=== PATIENT | male | born 1970 | race Caucasian/White ===

== ENCOUNTER 2016-12-23 10:17 | Emergency (ER) | payer BC ==
[2016-12-23] MEDS ORDERED: HYDROmorphone 1 MG/ML SYRINGE IM STA ×2 (12:49→13:59)
[2016-12-23] MEDS ORDERED: KETOROLAC 60 MG/2 ML VIAL IM STA (12:50)
[2016-12-23] MEDS ORDERED: KETOROLAC 60 MG/2 ML VIAL ONE (13:00)
[2016-12-23] MEDS ORDERED: HYDROmorphone 1 MG/ML SYRINGE ONE ×2 (13:00→14:16)
== END 2016-12-23 14:36 | disposition home or self-care (01) ==
DX: M54.5 Low back pain (principal); G89.29 Other chronic pain; M19.90 Unspecified osteoarthritis, unspecified site; Z86.010 Personal history of colon polyps
CPT/HCPCS: 96372; 99283; 99284; J1170

== ENCOUNTER 2017-03-03 12:47 | Emergency (ER) | payer BC ==
[2017-03-03] MEDS ORDERED: oxyCOD/ACETAMIN 5 MG/325 MG TABLET PO STA (13:22)
[2017-03-03] MEDS ORDERED: NAPROXEN 250 MG TABLET PO STA (13:23)
[2017-03-03] MEDS ORDERED: oxyCOD/ACETAMIN 5 MG/325 MG TABLET PO ONE (13:28)
[2017-03-03] MEDS ORDERED: NAPROXEN 250 MG TABLET PO ONE (13:28)
== END 2017-03-03 14:45 | disposition home or self-care (01) ==
DX: M54.5 Low back pain (principal); W17.81XA Fall down embankment (hill), initial encounter; Y92.008 Other place in unspecified non-institutional (private) residence as the place of occurrence of the external cause; M51.36 Other intervertebral disc degeneration, lumbar region; Z98.1 Arthrodesis status
CPT/HCPCS: 72100; 99283; A9270

== ENCOUNTER 2017-06-28 08:58 | Outpatient (CLI) | payer BC ==
[2017-06-28 09:20] LABS: HGB - HEMOGLOBIN 13.8 g/dL (14.0-18.0); MEAN CORPUSCULAR HEMOGLOBIN 28.4 pg (27.0-31.0); MEAN CORPUSCULAR HGB CONC 34.4 g/dL (32.0-36.0); MEAN CORPUSCULAR VOLUME 82.4 fL (80.0-94.0); MEAN PLATELET VOLUME 6.7 fL (7.4-11.4); RED BLOOD COUNT 4.85 10^6/uL (4.70-6.10); RED CELL DISTRIBUTION WIDTH 13.9 % (12.0-15.0); WHITE BLOOD COUNT 7.6 x10^3/uL (4.8-10.8)
[2017-06-28 09:29] LABS: CALCIUM 9.1 mg/dL (8.5-10.3); CREATININE 0.9 mg/dL (0.6-1.2); POTASSIUM 4.2 mmol/L (3.5-5.0)
== END 2017-06-28 08:59 | disposition home or self-care (01) ==
LOC: LAB 08:58
PROVIDERS: ATTEND Orthopaedic Surgery Orthopaedic Surgery of the Spine
DX: M48.08 Spinal stenosis, sacral and sacrococcygeal region (principal)
CPT/HCPCS: 36415; 80048

== ENCOUNTER 2017-07-29 14:01 | Emergency (ER) | payer BC ==
--- NOTE | 2017-07-29 14:32 | ED Physician Documentation ---
PD HPI MHE - Stated complaint Stated Complaint: MHE - Chief complaint Chief Complaint: MHE - History obtained from History obtained from: Patient - History of Present Illness Primary symptom: Other (He has long-standing depression, although he says he has never been formally diagnosed. He was on medications a long time ago for same, not currently. Lately he has been having a lot of issues with family, marital issues, he cannot work because of his back. He texted someone today and told her that he needed help and she called 911 and he was brought here by law enforcement for help. He is not actively suicidal and has had no suicidal ideation at all. He denies alcohol or drug use.) Review of Systems Constitutional: denies: Fever, Chills Cardiac: denies: Chest pain / pressure, Palpitations Respiratory: denies: Dyspnea, Cough GI: denies: Abdominal Pain PD PAST MEDICAL HISTORY - Past Medical History Cardiovascular: None Respiratory: None Neuro: None Endocrine/Autoimmune: None GI: Pancreatitis, Colon polyps : None HEENT: None Psych: Depression Musculoskeletal: Osteoarthritis, Chronic back pain Derm: None - Past Surgical History Past Surgical History: Yes General: Colonoscopy Ortho: Arthroscopic surgery - Present Medications Home Medications: Ambulatory Orders Medication Instructions Recorded Confirmed Hydroxyzine Pamoate 07/29/17 oxyCODONE [Roxicodone] 07/29/17 - Allergies Allergies/Adverse Reactions: Allergies Allergy/AdvReac Type Severity Reaction Status Date / Time No Known Drug Allergies Allergy Verified 03/03/17 12:52 - Social History Does the pt smoke?: No Smoking Status: Never smoker Does the pt drink ETOH?: No Does the pt have substance abuse?: No - Immunizations Immunizations are current?: Yes - POLST Patient has POLST: No PD ED PE NORMAL - Vitals Vital signs reviewed: Yes - General General: Alert and oriented X 3, Other (Intermittently tearful but laughing at jokes) - HEENT HEENT: PERRL, EOMI - Neuro Neuro: Alert and oriented X 3, 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 When his [id number] arrived she will be discharged with the number for the [facility] to be called and the [facility] can evaluate him at home. Departure - Departure Disposition: Home, Self Care Clinical Impression: Depression Qualifiers: Depression Type: major depressive disorder Major depression recurrence: recurrent Active/Remission status: currently active Major depression episode severity: moderate Qualified Code(s): F33.1 - Major depressive disorder, recurrent, moderate Condition: Good Record reviewed to determine appropriate education?: Yes Instructions: ED Depression Comments: When you get home, call [phone], the line there can arrange for a mental health professional to be dispatched to her home for counseling and or to arrange psychiatric follow-up. If you develop thoughts of suicide please return for further evaluation and treatment. Your blood pressure was elevated today on check into the emergency department. This does not mean that you have hypertension, it is a common phenomenon to come to the emergency department and have elevated blood pressure. I recommend that she see your primary care physician within the week to have it rechecked when you are feeling better.
[2017-07-29 14:34] LABS: BASOPHILS # (AUTO) 0.1 10^3/uL (0.0-0.1); BASOPHILS % (AUTO) 0.7 %; EOSINOPHILS # (AUTO) 0.1 10^3/uL (0.0-0.7); EOSINOPHILS % (AUTO) 1.5 %; HCT - HEMATOCRIT 39.7 % (42.0-52.0); HGB - HEMOGLOBIN 13.7 g/dL (14.0-18.0); LYMPHOCYTES # (AUTO) 1.7 10^3/uL (1.5-3.5); LYMPHOCYTES % (AUTO) 22.3 %; MEAN CORPUSCULAR HGB CONC 34.5 g/dL (32.0-36.0); MEAN CORPUSCULAR VOLUME 81.2 fL (80.0-94.0); MEAN PLATELET VOLUME 6.8 fL (7.4-11.4); MONOCYTES # (AUTO) 0.8 10^3/uL (0.0-1.0); MONOCYTES % (AUTO) 10.4 %; NEUTROPHILS # (AUTO) 5.1 10^3/uL (1.5-6.6); NEUTROPHILS % (AUTO) 65.1 %; RED BLOOD COUNT 4.88 10^6/uL (4.70-6.10); RED CELL DISTRIBUTION WIDTH 13.3 % (12.0-15.0); UNCORRECTED WHITE BLOOD COUNT 7.8 x10^3/uL; WHITE BLOOD COUNT 7.8 x10^3/uL (4.8-10.8)
[2017-07-29 14:41] LABS: ALBUMIN/GLOBULIN RATIO 1.2 (1.0-2.2); BUN - BLOOD UREA NITROGEN 20 mg/dL (6-20); CALCIUM 9.6 mg/dL (8.5-10.3); CARBON DIOXIDE - CO2 22 mmol/L (21-32); CHLORIDE 102 mmol/L (101-111); CREATININE 1.1 mg/dL (0.6-1.2); GFR - MDRD 71 (>89); GLUCOSE 95 mg/dL (70-100); LIPASE 25 U/L (22-51); POTASSIUM 3.9 mmol/L (3.5-5.0); SODIUM 136 mmol/L (135-145); TOTAL PROTEIN 8.3 g/dL (6.7-8.2)
[2017-07-29 14:46] LABS: BILIRUBIN,URINE NEGATIVE (NEGATIVE)
[2017-07-29 14:47] LABS: UA CHARGE (STRIP ONLY) YES; UR CULTURE IF IND NOT INDICATED
[2017-07-29 15:29] VITALS: BP 139/82
== END 2017-07-29 15:15 | disposition home or self-care (01) ==
LOC: ED 14:01
DX: F33.1 Major depressive disorder, recurrent, moderate (principal); R03.0 Elevated blood-pressure reading, without diagnosis of hypertension; Z86.010 Personal history of colon polyps; M19.90 Unspecified osteoarthritis, unspecified site
CPT/HCPCS: 36415; 80053; 80306; 80320; 81001; 81003; 83690; 85025; 87086; 99283

== ENCOUNTER 2017-07-30 10:29 | Emergency (ER) | payer BC ==
[2017-07-30 10:49] VITALS: BP 119/78
== END 2017-07-30 11:55 | disposition left against medical advice (07) ==
LOC: ED 10:29
DX: R45.851 Suicidal ideations (principal); Z53.21 Procedure and treatment not carried out due to patient leaving prior to being seen by health care provider
CPT/HCPCS: 80053; 80307; 80320; 80329; 83690; 85025; 99281

== ENCOUNTER 2018-01-07 22:22 | Emergency (ER) | payer BC ==
[2018-01-07 22:31] VITALS: BP 132/73
[2018-01-07] MEDS ORDERED: LIDOCAINE PATCH 5% TOP STA (22:51)
[2018-01-07] MEDS ORDERED: DEXAMETHASONE 10 MG/ML VIAL PO STA (22:51)
[2018-01-07] MEDS ORDERED: KETOROLAC 60 MG/2 ML VIAL IM STA (22:51)
[2018-01-07] MEDS ORDERED: CYCLOBENZAPRINE 10 MG Prepack 2 PO PRN (22:52)
--- NOTE | 2018-01-07 23:08 | ED Physician Documentation ---
PD HPI BACK PAIN - Stated complaint Stated Complaint: LOWER BACK PX - Chief complaint Chief Complaint: Back Pain - History obtained from History obtained from: Patient - History of Present Illness Timing - onset: Today Timing - details: Gradual onset, Still present Location: Lower, Right Quality: Pain, Spasm, Similar to prior episodes Worsened by: Movement Contributing factors: Lifting, Twisting Similar symptoms before: Work up / diagnostics Recently seen: Not recently seen - Additional information Additional information: Patient is a 47 year old male with a history of chronic back pain with multiple surgeries in the past. Patient states that today he was moving furniture and he developed right sided muscle pain and spasm. patient denies any bladder or bowel disfunction or any trauma. Patient denies any fevers, chills, nausea or vomiting. Review of Systems Constitutional: denies: Fever, Chills Eyes: reports: Reviewed and negative Ears: reports: Reviewed and negative Nose: denies: Congestion Throat: reports: Reviewed and negative Cardiac: denies: Chest pain / pressure, Palpitations, Calf pain Respiratory: denies: Dyspnea, Cough, Wheezing GI: denies: Nausea, Vomiting : denies: Dysuria, Unable to Void, Incontinent Skin: denies: Rash, Lesions, Abrasion (s) Musculoskeletal: reports: Back pain, Extremity pain Neurologic: denies: Generalized weakness, Focal weakness, Numbness Immunocompromised: denies: Immunocompromised PD PAST MEDICAL HISTORY - Past Medical History Cardiovascular: None Respiratory: None Neuro: None Endocrine/Autoimmune: None GI: Pancreatitis, Colon polyps : None HEENT: None Psych: Depression Musculoskeletal: Osteoarthritis, Chronic back pain Derm: None - Past Surgical History Past Surgical History: Yes General: Colonoscopy Ortho: Arthroscopic surgery - Present Medications Home Medications: Ambulatory Orders Medication Instructions Recorded Confirmed hydrOXYzine pamoate [Hydroxyzine 07/29/17 Pamoate] oxyCODONE [Roxicodone] 07/29/17 Cyclobenzaprine [Flexeril] 10 mg PO TID PRN #20 tablet 01/07/18 Lidocaine Patch 5% [Lidoderm Patch] 1 each TOP DAILY #14 patch 01/07/18 - Allergies Allergies/Adverse Reactions: Allergies Allergy/AdvReac Type Severity Reaction Status Date / Time No Known Drug Allergies Allergy Verified 01/07/18 22:31 - Social History Does the pt smoke?: No Smoking Status: Never smoker Does the pt drink ETOH?: No Does the pt have substance abuse?: No - Immunizations Immunizations are current?: Yes - POLST Patient has POLST: No PD ED PE NORMAL - Vitals Vital signs reviewed: Yes - General General: Alert and oriented X 3 - HEENT HEENT: Atraumatic, PERRL, Moist mucous membranes - Neck Neck: Supple, no meningeal sign - Cardiac Cardiac: RRR, No murmur - Respiratory Respiratory: No respiratory distress - Abdomen Abdomen: Soft, Non tender, Non distended - Derm Derm: Normal color, No rash - Extremities Extremities: No deformity - Neuro Neuro: Alert and oriented X 3, 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 No: Vertebral tenderness Results - Vitals Vitals: Vital Signs - 24 hr 01/07/18 22:27 Temperature 36.6 C Heart Rate 69 Respiratory 18 Rate Blood Pressure 132/73 H O2 Saturation 98 Oxygen O2 Source Room air PD MEDICAL DECISION MAKING - ED course Complexity details: reviewed old records, reviewed results, re-evaluated patient , considered differential, d/w patient ED course: Patient was seen and examined at beside. patient's pain was all literal and there was no sign of neurological deficit. Patient was driving himself and was treated with toradol, lidoderm and decadron. Patient was given a take home pack of flexeril. Patient had no indication for imaging at this time and was stable for discharge with outpatient followup. Departure - Departure Disposition: 01 Home, Self Care Clinical Impression: Lumbar strain Condition: Good Instructions: ED Spasm Back No Trauma Follow-Up: primary,care provider [Other] - Within 3 Days Prescriptions: Cyclobenzaprine [Flexeril] 10 mg PO TID PRN #20 tablet PRN Reason: Spasms Lidocaine Patch 5% [Lidoderm Patch] 1 each TOP DAILY #14 patch Comments: Your symptoms today are likely secondary to muscle strain as opposed to a spinal cord problem. You should continue with your current pain management but you can add flexeril for muscle spasm and lidoderm patch for pain. You can also try ice or heat as tolerated. You should avoid any heavy lifting or strenuous physical activity. You cannot drive or operate heavy machinery while taking the muscle relaxer. You should follow up with your back specialist. You may return to the emergency department at any time for new, worsening or uncontrollable symptoms. Forms: Activity restrictions
== END 2018-01-07 23:30 | disposition home or self-care (01) ==
LOC: ED 22:22
DX: S39.012A Strain of muscle, fascia and tendon of lower back, initial encounter (principal); X50.0XXA Overexertion from strenuous movement or load, initial encounter; Y93.89 Activity, other specified
CPT/HCPCS: 96372; 99283; A9270

== ENCOUNTER 2018-02-23 19:18 | Emergency (ER) | payer BC ==
--- NOTE | 2018-02-23 20:10 | ED Physician Documentation ---
PD HPI BACK PAIN - Stated complaint Stated Complaint: LOWER BACK PX - Chief complaint Chief Complaint: Back Pain - History obtained from History obtained from: Patient - History of Present Illness Timing - onset: How many days ago (2) Timing - duration: Days Timing - details: Gradual onset, Waxing and waning Pain level now: 9 Location: Lower, Right, Left Quality: Pain, Spasm Improves with: Nothing Worsened by: Other (no exacerbating factors) Similar symptoms before: Diagnosis (chronic back pain) Recently seen: Emergency Dept (T+R last month for similar symptoms (did not have relief with the lidoderm nor the decadron, and has since had direct injection of steroids into back and he says these have not provided significant relief, either)) Review of Systems Constitutional: denies: Fever GI: denies: Abdominal Pain : denies: Incontinent Skin: denies: Rash Musculoskeletal: reports: Back pain Neurologic: denies: Focal weakness, Numbness PD PAST MEDICAL HISTORY - Past Medical History Past Medical History: Yes Cardiovascular: None Respiratory: None Neuro: None Endocrine/Autoimmune: None GI: Pancreatitis, Colon polyps : None HEENT: None Psych: Depression Musculoskeletal: Osteoarthritis, Chronic back pain Derm: None Other Past Medical History: Colon cancer - Past Surgical History Past Surgical History: Yes General: Colonoscopy Ortho: Arthroscopic surgery - Present Medications Home Medications: Ambulatory Orders Medication Instructions Recorded Confirmed oxyCODONE [Roxicodone] 1 - 2 tab PO Q6HR PRN 07/29/17 Cyclobenzaprine [Flexeril] 10 mg PO TID PRN #20 tablet 02/23/18 - Allergies Allergies/Adverse Reactions: Allergies Allergy/AdvReac Type Severity Reaction Status Date / Time No Known Drug Allergies Allergy Verified 02/23/18 19:23 - Social History Does the pt smoke?: No Smoking Status: Never smoker Does the pt drink ETOH?: No Does the pt have substance abuse?: No - Immunizations Immunizations are current?: Yes Immunizations: TDAP current <10years - POLST Patient has POLST: No PD ED PE NORMAL - Vitals Vital signs reviewed: Yes - General General: Alert and oriented X 3, No acute distress, Well developed/nourished - Back Back: No spinal TTP, Other (no TTP midline or bilateral paravertebral) - Derm Derm: No rash - Extremities Extremities: Normal ROM s pain, No edema - Neuro Neuro: Alert and oriented X 3, No motor deficit, No sensory deficit, Other (2+/ 4 bilateral patellar DTR) Results - Vitals Vitals: Vital Signs - 24 hr 02/23/18 19:21 Temperature 36.2 C L Heart Rate 71 Respiratory 16 Rate Blood Pressure 127/70 O2 Saturation 98 Oxygen O2 Source Room air PD MEDICAL DECISION MAKING - ED course Complexity details: reviewed old records, considered differential, d/w patient Departure - Departure Disposition: 01 Home, Self Care Clinical Impression: Acute exacerbation of chronic low back pain Condition: Good Instructions: ED Back Care Tips, ED Spasm Back No Trauma, Flexeril, ED Neck Back Pain General Prescriptions: Cyclobenzaprine [Flexeril] 10 mg PO TID PRN #20 tablet PRN Reason: Spasms Forms: Activity restrictions
[2018-02-23] MEDS ORDERED: CYCLOBENZAPRINE 10 MG Prepack 2 PO STA (20:27)
[2018-02-23] MEDS ORDERED: KETOROLAC 60 MG/2 ML VIAL IM STA (20:30)
[2018-02-23 21:03] VITALS: BP 127/65
== END 2018-02-23 21:07 | disposition home or self-care (01) ==
LOC: ED 19:18
DX: M54.5 Low back pain (principal); G89.29 Other chronic pain; M19.90 Unspecified osteoarthritis, unspecified site; Z85.038 Personal history of other malignant neoplasm of large intestine
CPT/HCPCS: 96372; 99283

== ENCOUNTER 2018-07-05 18:44 | Emergency (ER) | payer BC ==
[2018-07-05] MEDS ORDERED: oxyCODONE 5 MG TABLET PO STA (19:02)
--- NOTE | 2018-07-05 19:05 | ED Physician Documentation ---
PD HPI BACK PAIN - Stated complaint Stated Complaint: BACK PX - Chief complaint Chief Complaint: Back Pain - History obtained from History obtained from: Patient - History of Present Illness Timing - onset: Other (48-year-old gentleman with history of back pain, he in 2016 he had some lumbar fusions and cages placed. Over the last 6 months he has had lower and right-sided back pain but the atypical thing is that it radiates to the right upper quadrant. It never awakens him from sleep and does not seem to be Associated with eating. It does not seem positional but he has a hard time getting up from a laying or sitting position. He denies weakness, numbness, tingling of the extremities or saddle area. No fevers or weight loss. ) Review of Systems Constitutional: denies: Fever, Chills Respiratory: denies: Dyspnea, Cough GI: reports: Abdominal Pain. denies: Nausea, Vomiting, Constipation, Diarrhea : denies: Dysuria, Frequency, Hematuria PD PAST MEDICAL HISTORY - Past Medical History Cardiovascular: None Respiratory: None Endocrine/Autoimmune: None GI: Pancreatitis, Colon polyps : None HEENT: None Psych: Depression Musculoskeletal: Osteoarthritis, Chronic back pain Derm: None - Past Surgical History Past Surgical History: Yes General: Colonoscopy Ortho: Arthroscopic surgery - Present Medications Home Medications: Ambulatory Orders Medication Instructions Recorded Confirmed DULoxetine [Cymbalta] mg PO DAILY 07/05/18 Oxycodone HCl 10 mg PO TID PRN #15 tablet 07/05/18 - Allergies Allergies/Adverse Reactions: Allergies Allergy/AdvReac Type Severity Reaction Status Date / Time No Known Drug Allergies Allergy Verified 07/05/18 18:49 - Social History Does the pt smoke?: No Smoking Status: Never smoker Does the pt drink ETOH?: No Does the pt have substance abuse?: No - Immunizations Immunizations are current?: Yes Immunizations: TDAP current <10years - POLST Patient has POLST: No PD ED PE NORMAL - Vitals Vital signs reviewed: Yes - General General: Alert and oriented X 3, No acute distress - Cardiac Cardiac: RRR, No murmur - Respiratory Respiratory: No respiratory distress, Clear bilaterally - Abdomen Abdomen: Other (He is tender on the right side of the abdomen, is diffuse and mild. No surgical signs. Note history of appendectomy.) - Back Back: No CVA TTP, No spinal TTP - Extremities Extremities: No edema, No calf tenderness / cord, Other (He has equal Achilles reflexes, mildly diminished right patellar reflex but normal on the left. Sensation throughout the lower extremities is normal.) - Neuro Neuro: Alert and oriented X 3, Normal speech Results - Vitals Vitals: Vital Signs - 24 hr 07/05/18 18:47 Temperature 36.8 C Heart Rate 69 Respiratory 16 Rate Blood Pressure 149/73 H O2 Saturation 97 Oxygen O2 Source Room air - Rads (name of study) CT L spine and abd/pelvis Radiology: EMP read contemporaneously (NAD, DDD in back) PD MEDICAL DECISION MAKING - ED course ED course: Seems to have excerbation of LBP, but radiation to RUQ is atypical. As such CT imaging was done and normal. - Sepsis Event Vital Signs: Vital Signs - 24 hr 07/05/18 18:47 Temperature 36.8 C Heart Rate 69 Respiratory 16 Rate Blood Pressure 149/73 H O2 Saturation 97 Oxygen O2 Source Room air Departure - Departure Disposition: Home, Self Care Clinical Impression: Acute exacerbation of chronic low back pain Abdominal pain Qualifiers: Abdominal location: right upper quadrant Qualified Code(s): R10.11 - Right upper quadrant pain Condition: Good Record reviewed to determine appropriate education?: Yes Instructions: ED Abdominal Pain Unkn Cause, ED Neck Back Pain General Prescriptions: Oxycodone HCl 10 mg PO TID PRN #15 tablet PRN Reason: Pain Comments: Do not drink or drive while taking narcotic pain medication. Note that many narcotic pain relievers also contain Tylenol/acetaminophen. Please ensure that your total dose of acetaminophen from all sources does not exceed 3 g (3000 mg) per day. You may get constipated while on this medication. Take a stool softener such as Colace twice a day while you are on it. Also add an [id number] laxative such as senna or MiraLAX on any day that you do not have a bowel movement. If you received a narcotic pain medication or sedative while in the emergency department, do not drive for the next 24 hours. Your blood pressure was elevated today on check into the emergency department. This does not mean that you have hypertension, it is a common phenomenon to come to the emergency department and have elevated blood pressure. I recommend that you see your primary care physician within the week to have it rechecked when you are feeling better.
--- NOTE | 2018-07-05 20:12 | CT Report ---
Reason: back/abd pain Procedure Date: 07/05/2018 Accession Number: [id number] / [id number] Procedure: CT - Abdomen/Pelvis W/O CPT Code: FULL RESULT: EXAM: CT ABDOMEN AND PELVIS EXAM DATE: 07/05/2018 07:44 PM. CLINICAL HISTORY: Back/abd pain. COMPARISONS: ABDOMEN/PELVIS W/ 09/14/2013. TECHNIQUE: Routine helical CT imaging was performed through the abdomen and pelvis. IV contrast: No. Enteric contrast: No. Reconstructions: Coronal and sagittal. In accordance with CT protocol optimization, one or more of the following dose reduction techniques were utilized for this exam: automated exposure control, adjustment of mA and/or KV based on patient size, or use of iterative reconstructive technique. FINDINGS: Lung Bases: Unremarkable. Liver: Normal. No masses. Gallbladder/Bile Ducts: The gallbladder is contracted. No evidence of cholecystitis or bile duct obstruction. Spleen: Normal. Pancreas: Normal. Adrenal Glands: Normal. Kidneys: There is a 1.7 cm cyst at the upper pole of the left kidney. No urinary tract stones or hydronephrosis. Peritoneal Cavity/Bowel: Normal. No free fluid, free air or adenopathy. No masses or acute inflammatory process. The appendix is well-visualized. No right lower quadrant inflammatory changes however are seen. Pelvic Organs: Normal. The bladder and visualized pelvic organs are within normal limits. Vasculature: No aneurysms or other significant abnormality. Bones: L4-S1 posterior and interbody fusion. Other: None. IMPRESSION: 1. No urinary tract stones or obstruction. 2. No bowel obstruction, fluid collection or acute inflammatory changes. RADIA
--- NOTE | 2018-07-05 20:13 | CT Report ---
Reason: back/abd pain Procedure Date: 07/05/2018 Accession Number: [id number] / [id number] Procedure: CT - Lumbar Spine W/O CPT Code: FULL RESULT: EXAM: CT LUMBAR SPINE WITHOUT CONTRAST EXAM DATE: 07/05/2018 07:44 PM. CLINICAL HISTORY: Back/abd pain. COMPARISONS: LUMBAR SPINE W/O 10/13/2015. TECHNIQUE: Thin-section axial images were acquired of the lumbar spine from T12 to S1 without contrast. Post-processing: Coronal and sagittal reformats. Other: None. In accordance with CT protocol optimization, one or more of the following dose reduction techniques were utilized for this exam: automated exposure control, adjustment of mA and/or KV based on patient size, or use of iterative reconstructive technique. FINDINGS: Alignment: There is grade 1 spondylolisthesis at L5-S1. Alignment at other levels appears satisfactory. Bones: Five [id number]-jeu-[id number] lumbar vertebral bodies are present. There are bilateral posterior pedicle screws at L4, L5, and S1. There are new interbody surgical prosthesis at L4-L5 and L5-S1. 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 Disk Levels/Facets: There is disk height loss with broad-based disk bulge at L3-L4 which is unchanged. Other disk spaces appear unchanged. Musculature: No paravertebral hematoma or muscular asymmetry. Other: The visualized retroperitoneum is unremarkable. IMPRESSION: 1. New findings of posterior spinal fusion and interbody prosthesis at L4-L5-S1. 2. Stable grade 1 spondylolisthesis at L5-S1. 3. No acute fracture or hematoma. RADIA
[2018-07-05] MEDS ORDERED: HYDROmorphone 1 MG/ML CARPUJECT IM STA (20:21)
[2018-07-05 20:39] VITALS: BP 137/67
== END 2018-07-05 20:49 | disposition home or self-care (01) ==
LOC: ED 18:44
DX: M54.5 Low back pain (principal); R10.11 Right upper quadrant pain; G89.29 Other chronic pain; R03.0 Elevated blood-pressure reading, without diagnosis of hypertension; Z98.1 Arthrodesis status
CPT/HCPCS: 72131; 74176; 96372; 99283; 99284; A9270; J1170

== ENCOUNTER 2018-08-02 00:26 | Emergency (ER) | payer BC ==
[2018-08-02 01:14] LABS: BASOPHILS % (AUTO) 0.5 %; EOSINOPHILS # (AUTO) 0.2 10^3/uL (0.0-0.7); EOSINOPHILS % (AUTO) 2.4 %; LYMPHOCYTES # (AUTO) 2.9 10^3/uL (1.5-3.5); LYMPHOCYTES % (AUTO) 33.3 %; MEAN CORPUSCULAR HEMOGLOBIN 29.2 pg (27.0-31.0); MEAN CORPUSCULAR HGB CONC 34.2 g/dL (32.0-36.0); MEAN CORPUSCULAR VOLUME 85.4 fL (80.0-94.0); MONOCYTES # (AUTO) 0.8 10^3/uL (0.0-1.0); MONOCYTES % (AUTO) 9.1 %; NEUTROPHILS # (AUTO) 4.8 10^3/uL (1.5-6.6); NEUTROPHILS % (AUTO) 54.7 %; PLT - PLATELET COUNT 252 10^3/uL (130-450); RED BLOOD COUNT 4.45 10^6/uL (4.70-6.10); RED CELL DISTRIBUTION WIDTH 13.6 % (12.0-15.0); WHITE BLOOD COUNT 8.7 x10^3/uL (4.8-10.8)
[2018-08-02] MEDS ORDERED: HYDROmorphone 1 MG/ML CARPUJECT IVP STA ×2 (01:25→03:17)
[2018-08-02] MEDS ORDERED: ONDANSETRON 4 MG/2 ML VIAL IVP STA (01:25)
--- NOTE | 2018-08-02 01:25 | ED Physician Documentation ---
PD HPI ABD PAIN - Stated complaint Stated Complaint: LAT RIB CAGE PX - Chief complaint Chief Complaint: General - History obtained from History obtained from: Patient - History of Present Illness Timing - onset: How many months ago (1) Timing - duration: Months (1) Timing - details: Intermittant Pain level max: 8 Pain level now: 7 Quality: Cramping, Aching, Pain Location: RUQ Radiation: No: Chest, , Lower back, Left flank, Left shoulder, Right flank, Right shoulder, Upper back Improved by: Other (nothing) Worsened by: Other (nothing) Associated symptoms: Nausea. No: Fever, Vomiting, Hematemesis, Diarrhea, Constipation, Melena, Hematochezia, Dysuria Similar symptoms before: Has not had sx before Recently seen: Not recently seen Review of Systems Ten Systems: 10 systems reviewed and negative Constitutional: denies: Fever Ears: denies: Ear pain Nose: denies: Rhinorrhea / runny nose, Congestion Throat: denies: Sore throat Respiratory: denies: Cough, Wheezing Skin: denies: Rash Musculoskeletal: denies: Neck pain, Back pain Neurologic: denies: Focal weakness, Numbness, Headache PD PAST MEDICAL HISTORY - Past Medical History Past Medical History: Yes Cardiovascular: None Respiratory: None Endocrine/Autoimmune: None GI: Pancreatitis, Colon polyps : None HEENT: None Psych: Depression Musculoskeletal: Osteoarthritis, Chronic back pain Derm: None - Past Surgical History Past Surgical History: Yes General: Colonoscopy Ortho: Arthroscopic surgery - Present Medications Home Medications: Ambulatory Orders Medication Instructions Recorded Confirmed DULoxetine [Cymbalta] mg PO DAILY 07/05/18 Ondansetron Odt [Zofran] 4 mg TL Q6H PRN #10 tablet 08/02/18 Oxycodone HCl/Acetaminophen 1 - 2 each PO Q6H PRN #14 tablet 08/02/18 [Percocet 5-325 mg Tablet] - Allergies Allergies/Adverse Reactions: Allergies Allergy/AdvReac Type Severity Reaction Status Date / Time No Known Drug Allergies Allergy Verified 08/02/18 00:44 - Social History Does the pt smoke?: No Smoking Status: Never smoker Does the pt drink ETOH?: No Does the pt have substance abuse?: No - Immunizations Immunizations are current?: Yes Immunizations: TDAP current <10years - POLST Patient has POLST: No PD ED PE NORMAL - Vitals Vital signs reviewed: Yes - General General: Alert and oriented X 3, No acute distress - HEENT HEENT: Moist mucous membranes - Neck Neck: Supple, no meningeal sign - Cardiac Cardiac: RRR, Strong equal pulses - Respiratory Respiratory: No respiratory distress, Clear bilaterally - Abdomen Abdomen: Soft, Non distended, Other (Mild tender palpation epigastric and right upper quadrant. Negative Melchor sign. No peritoneal signs) - Back Back: No spinal TTP - Derm Derm: Warm and dry, No rash - Extremities Extremities: No edema, No calf tenderness / cord - Neuro Neuro: Alert and oriented X 3 - Psych Psych: Normal mood, Normal affect Results - Vitals Vitals: Vital Signs - 24 hr 08/02/18 08/02/18 08/02/18 00:37 01:57 02:34 Temperature 36.5 C Heart Rate 64 80 60 Respiratory 17 14 16 Rate Blood Pressure 145/78 H 135/81 H 128/77 O2 Saturation 98 96 99 08/02/18 08/02/18 03:20 03:49 Temperature 36.4 C L Heart Rate 53 L 55 L Respiratory 14 18 Rate Blood Pressure 119/81 H 125/80 O2 Saturation 98 98 Oxygen O2 Source Room air - Labs Labs: Laboratory Tests 08/02/18 08/02/18 08/02/18 01:05 01:05 02:05 WBC 8.7 RBC 4.45 L Hgb 13.0 L Hct 38.0 L MCV 85.4 MCH 29.2 MCHC 34.2 RDW 13.6 Plt Count 252 MPV 7.0 L Neut # (Auto) 4.8 Lymph # (Auto) 2.9 [place] # (Auto) 0.8 Eos # (Auto) 0.2 Baso # (Auto) 0.0 Absolute Nucleated RBC 0.01 Nucleated RBC % 0.1 Sodium 140 Potassium 3.4 L Chloride 106 Carbon Dioxide 24 Anion Gap 10.0 BUN 21 H Creatinine 1.1 Estimated GFR (MDRD) 71 L Glucose 102 H Calcium 9.1 Total Bilirubin 1.1 H AST 26 ALT 16 Alkaline Phosphatase 87 Total Protein 7.4 Albumin 4.4 Globulin 3.0 Albumin/Globulin Ratio 1.5 Lipase 34 Urine Color YELLOW Urine Clarity CLEAR Urine pH 5.5 Ur Specific [place] 1.020 Urine Protein NEGATIVE Urine Glucose (UA) NEGATIVE Urine Ketones NEGATIVE Urine Occult Blood NEGATIVE Urine Nitrite NEGATIVE Urine Bilirubin NEGATIVE Urine Urobilinogen 0.2 (NORMAL) Ur Leukocyte Esterase NEGATIVE Ur Microscopic Review NOT INDICATED Urine Culture Comments NOT INDICATED - Rads (name of study) CT abd/pelvis Radiology: Prelim report reviewed, EMP read contemporaneously, See rad report (Fatty liver and mild splenomegaly. Small low-attenuation liver lesions, some of which may be cysts. The largest is probably a cavernous hemangioma seen on prior ultrasound. 3. Mildly dilated proximal small bowel loops with air-fluid levels. These are nonspecific. There could be localized ileus. Low-grade obstruction not entirely excluded. Moderate stool in the colon. ) PD MEDICAL DECISION MAKING - ED course Complexity details: reviewed results, re-evaluated patient (Soft, nontender nondistended), considered differential, d/w patient ED course: Patient is a 48-year-old male with abdominal pain intermittently for the past month. No acute findings on laboratory testing to explain his pain. CT does not reveal any acute abnormalities other than possible focal ileus. He is not vomiting. Pain well controlled. Will trial on a small amount of pain medication see how he progresses. Ultrasound is not available tonight, therefore this was not undertaken. CT scan does not show any evidence of acute cholecystitis however. Recommend he follow-up with his doctor for further care. Symptoms does not appear consistent with gastritis or ulcer. Patient counseled regarding signs and symptoms for which I believe and urgent re-evaluation would be necessary. Patient with good understanding of and agreement to plan and is comfortable going home at this time This document was made in part using voice recognition software. While efforts are made to proofread this document, sound alike and grammatical errors may occur. - Sepsis Event Vital Signs: Vital Signs - 24 hr 08/02/18 08/02/18 08/02/18 00:37 01:57 02:34 Temperature 36.5 C Heart Rate 64 80 60 Respiratory 17 14 16 Rate Blood Pressure 145/78 H 135/81 H 128/77 O2 Saturation 98 96 99 08/02/18 08/02/18 03:20 03:49 Temperature 36.4 C L Heart Rate 53 L 55 L Respiratory 14 18 Rate Blood Pressure 119/81 H 125/80 O2 Saturation 98 98 Oxygen O2 Source Room air Departure - Departure Disposition: 01 Home, Self Care Clinical Impression: Ileus Abdominal pain Qualifiers: Abdominal location: unspecified location Qualified Code(s): R10.9 - Unspecified abdominal pain Condition: Good Instructions: ED Abdominal Pain Unkn Cause Male Follow-Up: your,doctor in 1 week [Other] Prescriptions: Ondansetron Odt [Zofran] 4 mg TL Q6H PRN #10 tablet PRN Reason: Nausea / Vomiting Oxycodone HCl/Acetaminophen [Percocet 5-325 mg Tablet] 1 - 2 each PO Q6H PRN #14 tablet PRN Reason: pain Comments: The cause of your symptoms is unclear today. You do have some mildly dilated small bowel loops that may be a localized ileus which could cause pain versus a low-grade obstruction. You should follow-up with your doctor for an ultrasound of your liver. Ultrasound was unavailable tonight. Your laboratory testing is normal. Your CT scan is otherwise normal. Return if you worsen Do not drink alcohol or drive while on narcotic pain medicine. Note that many narcotic pain relievers also contain tylenol/acetaminophen. Please ensure that your total dose of acetaminophen from all sources does not exceed 3 grams (3000mg) per day. You may constipated on this medication, take a stool softener such as "Colace" twice a day while you are on it. Also recommend a [id number] laxative such as senna or MiraLAX any day that you do not have a bowel movement. If you received narcotic pain medication in the emergency department, do not drive or operate machinery for the next 24 hours. Discharge Date/Time: 08/02/18 03:50
[2018-08-02 01:27] LABS: ALBUMIN 4.4 g/dL (3.2-5.5); ALBUMIN/GLOBULIN RATIO 1.5 (1.0-2.2); BILIRUBIN,TOTAL 1.1 mg/dL (0.2-1.0); CALCIUM 9.1 mg/dL (8.5-10.3); CREATININE 1.1 mg/dL (0.6-1.2); TOTAL PROTEIN 7.4 g/dL (6.7-8.2)
[2018-08-02] MEDS ORDERED: IOPAMIDOL-300 100 ML VIAL ONE (02:00)
[2018-08-02 02:09] LABS: BILIRUBIN,URINE NEGATIVE (NEGATIVE); GLUCOSE, URINE (UA) NEGATIVE (NEGATIVE); KETONES,URINE (UA) NEGATIVE (NEGATIVE); LEUKOCYTE ESTERASE, URINE NEGATIVE (NEGATIVE); NITRITE,URINE NEGATIVE (NEGATIVE); OCCULT BLOOD,URINE NEGATIVE (NEGATIVE); PH,URINE 5.5 PH (5.0-7.5); PROTEIN,URINE NEGATIVE (NEGATIVE); UROBILINOGEN,URINE 0.2 (NORMAL) E.U./dL (NORMAL)
[2018-08-02 02:12] LABS: CLARITY,URINE CLEAR (CLEAR)
[2018-08-02] MEDS ORDERED: IOPAMIDOL-300 100 ML VIAL IVP ONE (02:29)
--- NOTE | 2018-08-02 02:43 | CT Report ---
Reason: RUQ abd pain Procedure Date: 08/02/2018 Accession Number: [id number] / [id number] Procedure: CT - Abdomen/Pelvis W/ CPT Code: FULL RESULT: EXAM: CT ABDOMEN AND PELVIS EXAM DATE: 08/02/2018 02:14 AM. CLINICAL HISTORY: Right sided abdominal pain. COMPARISONS: ABDOMEN/PELVIS W/O 07/05/2018 7:27 PM. TECHNIQUE: Routine helical CT imaging was performed through the abdomen and pelvis. IV contrast: 100 ML ISOVUE 300. Enteric contrast: No. Reconstructions: Coronal and sagittal. In accordance with CT protocol optimization, one or more of the following dose reduction techniques were utilized for this exam: automated exposure control, adjustment of mA and/or KV based on patient size, or use of iterative reconstructive technique. FINDINGS: Lung Bases: Unremarkable. Liver: Possible fatty infiltration. At least 3 or 4 small low-attenuation foci are seen in the liver measuring up to 2.2 x 1.4 cm. The largest lesion probably represents hemangioma seen on the prior ultrasound. Gallbladder/Bile Ducts: Unremarkable. Spleen: Mildly enlarged at 13.2 cm. Pancreas: Normal. Adrenal Glands: Normal. Kidneys: Small left renal cyst. No masses or hydronephrosis. Peritoneal Cavity/Bowel: Mildly dilated proximal small bowel loops with some air fluid levels. Moderate stool in the colon. No diverticulitis. No free air or free fluid. No lymphadenopathy. Appendix is not seen. Probable appendectomy. Pelvic Organs: Normal. The bladder and visualized pelvic organs are within normal limits. Vasculature: No aneurysms or other significant abnormality. Bones: Posterior metallic fusion from L4-S1. Other: None. IMPRESSION: 1. Fatty liver and mild splenomegaly. 2. Small low-attenuation liver lesions, some of which may be cysts. The largest is probably a cavernous hemangioma seen on prior ultrasound. 3. Mildly dilated proximal small bowel loops with air-fluid levels. These are nonspecific. There could be localized ileus. Low-grade obstruction not entirely excluded. 4. Moderate stool in the colon. RADIA
[2018-08-02] MEDS ORDERED: KETOROLAC 30 MG/ML VIAL IVP STA (02:56)
[2018-08-02] MEDS ORDERED: HYOSCYAMINE SL 0.125 MG TABLET SL STA (02:56)
[2018-08-02] MEDS ORDERED: oxyCODONE 5 MG TABLET PO STA (03:12)
[2018-08-02 03:50] VITALS: BP 125/80
== END 2018-08-02 03:50 | disposition home or self-care (01) ==
LOC: ED 00:26
DX: K56.7 Ileus, unspecified (principal); R10.11 Right upper quadrant pain
CPT/HCPCS: 36415; 74177; 80053; 81003; 83690; 85025; 96374; 96375; 96376; 99284; A9270; J1170; Q9967; 81001; 87086

== ENCOUNTER 2018-11-02 17:49 | Emergency (ER) | payer BC ==
[2018-11-02] MEDS ORDERED: HYDROmorphone 1 MG/ML CARPUJECT IM STA ×2 (17:58→19:08)
--- NOTE | 2018-11-02 18:00 | ED Physician Documentation ---
PD HPI BACK PAIN - Stated complaint Stated Complaint: BK PX - Chief complaint Chief Complaint: Back Pain - History obtained from History obtained from: Patient - History of Present Illness Timing - onset: Other (48-year-old gentleman with chronic back pain status post multiple spinal spinous surgeries and fusions presents with 4 days of lumbar sharp pain that is worse with movement. It radiates into the left buttock and leg and he complains of some numbness behind the left knee. There is no saddle anesthesia, weakness. No fevers. He also notes intermittent occasional fleeting chest pains that are sharp. Generally worse with motion and activity. Lasting only seconds at a time. It is across the chest. He has not had a serious episode of this in the last 4 days. He had a chest pains care a few years ago and had a follow-up stress test.) Review of Systems Constitutional: denies: Fever, Chills Cardiac: reports: Chest pain / pressure, Pedal edema (chronic). denies: Palpitations, Calf pain Respiratory: denies: Dyspnea, Cough GI: denies: Abdominal Pain, Nausea, Vomiting Musculoskeletal: reports: Back pain. denies: Neck pain PD PAST MEDICAL HISTORY - Past Medical History Cardiovascular: None Respiratory: None Endocrine/Autoimmune: None GI: Pancreatitis, Colon polyps : None HEENT: None Psych: Depression Musculoskeletal: Osteoarthritis, Chronic back pain Derm: None - Past Surgical History Past Surgical History: Yes General: Colonoscopy Ortho: Arthroscopic surgery - Present Medications Home Medications: Ambulatory Orders Medication Instructions Recorded Confirmed DULoxetine [Cymbalta] mg PO DAILY 07/05/18 Oxycodone HCl/Acetaminophen 1 - 2 each PO Q6H PRN #14 tablet 11/02/18 [Percocet 5-325 mg Tablet] - Allergies Allergies/Adverse Reactions: Allergies Allergy/AdvReac Type Severity Reaction Status Date / Time No Known Drug Allergies Allergy Verified 11/02/18 17:57 - Social History Does the pt smoke?: No Smoking Status: Never smoker Does the pt drink ETOH?: No Does the pt have substance abuse?: No - Immunizations Immunizations are current?: Yes Immunizations: TDAP current <10years - POLST Patient has POLST: No PD ED PE NORMAL - Vitals Vital signs reviewed: Yes - General General: Alert and oriented X 3, Other (winces with motion) - Neck Neck: Supple, no meningeal sign, No bony TTP - Cardiac Cardiac: RRR, No murmur - Respiratory Respiratory: No respiratory distress, Clear bilaterally - Abdomen Abdomen: Non tender - Back Back: Other (Tender in the lumbar area and to the right paralumbar musculature.) - Extremities Extremities: Other (The patient has equal and normal Achilles and patellar reflexes bilaterally. Normal sensation in all areas of the legs. Patient denies saddle anesthesia. Normal strength in flexion-extension at the ankles, knees, and flexion of the hips.) - Neuro Neuro: Alert and oriented X 3, Normal speech Results - Vitals Vitals: Vital Signs - 24 hr 11/02/18 11/02/18 11/02/18 17:54 19:00 20:16 Temperature 36.0 C L Heart Rate 70 61 59 L Respiratory 13 16 15 Rate Blood Pressure 148/88 H 154/90 H 150/81 H O2 Saturation 93 98 97 Oxygen O2 Source Room air - EKG (time done) 1808 Rate: Rate (enter#) (61) Rhythm: NSR [place]: Normal Intervals: Normal [place] QRS: Normal Ischemia: Normal ST segments Computer interpretation: Agree with computer - Labs Labs: Laboratory Tests 11/02/18 11/02/18 11/02/18 18:24 18:24 18:24 WBC 6.6 RBC 4.45 L Hgb 13.0 L Hct 38.3 L MCV 86.1 MCH 29.2 MCHC 33.9 RDW 13.5 Plt Count 247 MPV 7.3 L Neut # (Auto) 4.2 Lymph # (Auto) 1.7 [place] # (Auto) 0.6 Eos # (Auto) 0.1 Baso # (Auto) 0.1 Absolute Nucleated RBC 0.00 Nucleated RBC % 0.0 Sodium 138 Potassium 4.2 Chloride 106 Carbon Dioxide 25 Anion Gap 7.0 BUN 26 H Creatinine 0.9 Estimated GFR (MDRD) 90 Glucose 110 H Calcium 8.6 Total Bilirubin 0.5 AST 22 ALT 22 Alkaline Phosphatase 80 Troponin I < 0.04 Total Protein 7.4 Albumin 4.2 Globulin 3.2 Albumin/Globulin Ratio 1.3 Lipase 41 - Rads (name of study) 2v chest Radiology: EMP read contemporaneously (normal) PD MEDICAL DECISION MAKING - ED course ED course: 48-year-old gentleman with 2 ongoing issues. One is fleeting and very atypical chest pain, nonischemic EKG and negative biomarkers I think are good for now given that he has not had chest pain in several days. Second would be back pain which is much more significant to him. He was given divided doses of IM narcotics with good effect. This is a recurrent issue for him and he has real pathology in his back. Departure - Departure Disposition: 01 Home, Self Care Clinical Impression: Acute exacerbation of chronic low back pain, Atypical chest pain Condition: Good Record reviewed to determine appropriate education?: Yes Instructions: ED Chest Pain Atypical Unkn Cause, ED Neck Back Pain General Prescriptions: Oxycodone HCl/Acetaminophen [Percocet 5-325 mg Tablet] 1 - 2 each PO Q6H PRN #14 tablet PRN Reason: pain Comments: Call your doctor to arrange a follow-up appointment, make the next available appointment. In the interim, return anytime if worse or if new symptoms develop. Do not drink or drive while taking narcotic pain medication. Note that many narcotic pain relievers also contain Tylenol/acetaminophen. Please ensure that your total dose of acetaminophen from all sources does not exceed 3 g (3000 mg) per day. You may get constipated while on this medication. Take a stool softener such as Colace twice a day while you are on it. Also add an [id number] laxative such as senna or MiraLAX on any day that you do not have a bowel movement. If you received a narcotic pain medication or sedative while in the emergency department, do not drive for the next 24 hours. Your blood pressure was elevated today on check into the emergency department. This does not mean that you have hypertension, it is a common phenomenon to come to the emergency department and have elevated blood pressure. I recommend that you see your primary care physician within the week to have it rechecked when you are feeling better.
[2018-11-02 18:32] LABS: BASOPHILS # (AUTO) 0.1 10^3/uL (0.0-0.1); EOSINOPHILS # (AUTO) 0.1 10^3/uL (0.0-0.7); EOSINOPHILS % (AUTO) 2.2 %; LYMPHOCYTES # (AUTO) 1.7 10^3/uL (1.5-3.5); LYMPHOCYTES % (AUTO) 25.4 %; MEAN CORPUSCULAR HEMOGLOBIN 29.2 pg (27.0-31.0); MEAN CORPUSCULAR HGB CONC 33.9 g/dL (32.0-36.0); MEAN CORPUSCULAR VOLUME 86.1 fL (80.0-94.0); MEAN PLATELET VOLUME 7.3 fL (7.4-11.4); MONOCYTES # (AUTO) 0.6 10^3/uL (0.0-1.0); MONOCYTES % (AUTO) 8.5 %; NEUTROPHILS # (AUTO) 4.2 10^3/uL (1.5-6.6); NEUTROPHILS % (AUTO) 62.9 %; PLT - PLATELET COUNT 247 10^3/uL (130-450); RED BLOOD COUNT 4.45 10^6/uL (4.70-6.10); RED CELL DISTRIBUTION WIDTH 13.5 % (12.0-15.0); WHITE BLOOD COUNT 6.6 x10^3/uL (4.8-10.8)
[2018-11-02 18:44] LABS: ALBUMIN 4.2 g/dL (3.2-5.5); ALBUMIN/GLOBULIN RATIO 1.3 (1.0-2.2); BILIRUBIN,TOTAL 0.5 mg/dL (0.2-1.0); CALCIUM 8.6 mg/dL (8.5-10.3); CREATININE 0.9 mg/dL (0.6-1.2); TOTAL PROTEIN 7.4 g/dL (6.7-8.2)
--- NOTE | 2018-11-02 19:01 | XRAY Report ---
Reason: chest pain Procedure Date: 11/02/2018 Accession Number: [id number] / [id number] Procedure: XR - Chest 2 View X-Ray CPT Code: 58531 FULL RESULT: EXAM: CHEST RADIOGRAPHY EXAM DATE: 11/02/2018 06:20 PM. CLINICAL HISTORY: Chest pain. COMPARISON: CHEST 2 VIEW PA/LAT 04/04/2015 8:04 AM. TECHNIQUE: 2 views. FINDINGS: Lungs/Pleura: No focal opacities evident. No pleural effusion. No pneumothorax. Normal volumes. Mediastinum: Heart and mediastinal contours are unremarkable. Other: None. IMPRESSION: Normal 2-view chest radiography. RADIA
[2018-11-02 20:17] VITALS: BP 150/81
[2018-11-02] MEDS ORDERED: oxyCODONE/ACET 5/325 Prepack 4 PO STA (20:17)
== END 2018-11-02 20:33 | disposition home or self-care (01) ==
LOC: ED 17:49
DX: M54.5 Low back pain (principal); G89.29 Other chronic pain; R07.89 Other chest pain; R03.0 Elevated blood-pressure reading, without diagnosis of hypertension; Z98.1 Arthrodesis status
CPT/HCPCS: 36415; 71046; 80053; 83690; 84484; 85025; 93005; 96374; 96376; 99283; J1170

== ENCOUNTER 2019-02-12 08:00 | Outpatient (CLI) | payer BC | END 2019-02-12 23:59 | disposition home or self-care (01) | LOC: LAB.N 08:00 | PROVIDERS: ATTEND Nurse Practitioner Gerontology | DX: E55.9 Vitamin D deficiency, unspecified (principal) | CPT/HCPCS: 36415; 82306 ==

== ENCOUNTER 2019-02-23 13:21 | Emergency (ER) | payer BC ==
[2019-02-23 13:40] VITALS: BP 152/84
--- NOTE | 2019-02-23 13:50 | ED Physician Documentation ---
History of Present Illness - Stated complaint Stated Complaint: BACK WOUND CHECK - Chief complaint Chief Complaint: General - History obtained from History obtained from: Patient - History of Present Illness Timing: Other (48-year-old gentleman with chronic back pain, had his fifth back surgery at [facility] about 4 weeks ago. Sutures removed about 10 days later and subsequent to that, for the last 2-1/2 weeks or so has had increased pain and drainage from the wound. No fevers.) Review of Systems Constitutional: denies: Fever, Chills Respiratory: denies: Dyspnea, Cough GI: denies: Abdominal Pain, Nausea, Vomiting PD PAST MEDICAL HISTORY - Past Medical History Cardiovascular: None Respiratory: None Endocrine/Autoimmune: None GI: Pancreatitis, Colon polyps : None HEENT: None Psych: Depression Musculoskeletal: Osteoarthritis, Chronic back pain Derm: None - Past Surgical History Past Surgical History: Yes General: Colonoscopy Ortho: Arthroscopic surgery - Present Medications Home Medications: Ambulatory Orders Medication Instructions Recorded Confirmed Oxycodone HCl/Acetaminophen 1 - 2 each PO Q6H PRN #14 tablet 11/02/18 [Percocet 5-325 mg Tablet] Amitriptyline HCl 10 mg PO 02/23/19 02/23/19 Clindamycin HCl [Clindamycin 300MG 300 mg PO Q6H #28 capsule 02/23/19 CAP] Meloxicam [Mobic] 7.5 mg PO BID PRN #20 tablet 02/23/19 - Allergies Allergies/Adverse Reactions: Allergies Allergy/AdvReac Type Severity Reaction Status Date / Time No Known Drug Allergies Allergy Verified 02/23/19 13:40 - Social History Does the pt smoke?: No Smoking Status: Never smoker Does the pt drink ETOH?: No Does the pt have substance abuse?: No - Immunizations Immunizations are current?: Yes Immunizations: TDAP current <10years - POLST Patient has POLST: No PD ED PE NORMAL - Vitals Vital signs reviewed: Yes - General General: Alert and oriented X 3, No acute distress - Back Back: Other (Over the upper lumbar spine there is a dehisced surgical wound with shallow ulcer and a purulent base. There is no surrounding cellulitis. There is no tenderness or limited range of motion because of it. It was probed during examination and does not seem to track anywhere. A culture was also sent during exam.) - Neuro Neuro: Alert and oriented X 3, Normal speech Results - Vitals Vitals: Vital Signs - 24 hr 02/23/19 13:38 Temperature 36.7 C Heart Rate 68 Respiratory 20 Rate Blood Pressure 152/84 H O2 Saturation 99 Oxygen O2 Source Room air Departure - Departure Disposition: 01 Home, Self Care Clinical Impression: Wound infection Condition: Good Record reviewed to determine appropriate education?: Yes Instructions: ED Wound Care Prescriptions: Clindamycin HCl [Clindamycin 300MG CAP] 300 mg PO Q6H #28 capsule Meloxicam [Mobic] 7.5 mg PO BID PRN #20 tablet PRN Reason: Pain Comments: Return if worse or if febrile. Follow-up with your surgeon at [facility], sooner if you are able to then scheduled. Wash briefly with soap and water once a day, then dressings as shown with wet-to-dry dressings. We are performing a wound culture, the results should be done in 48-72 hours. If antibiotic change is necessary we will call you. Return if worse in the meantime, especially if you develop increased pain, fevers, cannot keep down the medication. Otherwise follow-up with your physician in approximately 2-3 days.
== END 2019-02-23 13:59 | disposition home or self-care (01) ==
LOC: ED 13:21
DX: T81.41XA Infection following a procedure, superficial incisional surgical site, initial encounter (principal)
CPT/HCPCS: 87070; 87205; 99283

== ENCOUNTER 2019-06-02 10:51 | Emergency (ER) | payer BC ==
[2019-06-02 11:05] VITALS: BP 137/83
[2019-06-02] MEDS ORDERED: CHERRY SYRUP 10 ML UDC PO ONE (11:25)
[2019-06-02] MEDS ORDERED: DEXAMETHASONE 10 MG/ML VIAL PO STA (11:25)
[2019-06-02] MEDS ORDERED: KETOROLAC 60 MG/2 ML VIAL IM STA (11:25)
[2019-06-02] MEDS ORDERED: HYDROmorphone 1 MG/ML CARPUJECT IM STA (11:25)
--- NOTE | 2019-06-02 11:52 | ED Physician Documentation ---
PD HPI BACK PAIN - Stated complaint Stated Complaint: BACK PAIN - Chief complaint Chief Complaint: Back Pain - History obtained from History obtained from: Patient - History of Present Illness Timing - onset: How many days ago (He has had back pain chronically and has had prior back surgeries and then most recently a repeat back surgery by Dr. Escobar at this past January. He had been doing pretty well but is having increased pain over baseline the past several days to a week or so. No new injury. No fevers or signs of infection. He did follow-up with his back surgeon this past week who prescribed him gabapentin and Flexeril. They are working on getting repeat MRI and follow-up of the surgery.) Timing - duration: Days Timing - details: Gradual onset, Still present, Waxing and waning Location: Lower Quality: Pain, Spasm, Similar to prior episodes Associated symptoms: No: Fever, Weakness, Numbness, Incontinent of urine Improves with: No: Position, Meds Worsened by: Movement, Twisting Contributing factors: No: Trauma Similar symptoms before: Diagnosis (Chronic low back pain with occasional exacerbations. Recent re-surgery on the back this past January) Review of Systems Constitutional: denies: Fever, Chills, Myalgias : denies: Dysuria, Frequency, Incontinent Skin: denies: Rash, Lesions Neurologic: denies: Focal weakness, Numbness PD PAST MEDICAL HISTORY - Past Medical History Cardiovascular: None Respiratory: None Endocrine/Autoimmune: None GI: Pancreatitis, Colon polyps : None HEENT: None Psych: Depression Musculoskeletal: Osteoarthritis, Chronic back pain Derm: None - Past Surgical History Past Surgical History: Yes General: Colonoscopy Ortho: Arthroscopic surgery - Present Medications Home Medications: Ambulatory Orders Medication Instructions Recorded Confirmed Oxycodone HCl/Acetaminophen 1 - 2 each PO Q6H PRN #14 tablet 11/02/18 [Percocet 5-325 mg Tablet] Meloxicam [Mobic] 7.5 mg PO BID PRN #20 tablet 02/23/19 RX: Amitriptyline HCl 10 mg PO 02/23/19 02/23/19 RX: Clindamycin HCl [Clindamycin 300 mg PO Q6H #28 capsule 02/23/19 300MG CAP] Oxycodone HCl/Acetaminophen 1 each PO Q6H PRN #25 tablet 06/02/19 [Percocet 5-325 mg Tablet] dexAMETHasone [Decadron] 4 mg PO DAILY #7 tablet 06/02/19 - Allergies Allergies/Adverse Reactions: Allergies Allergy/AdvReac Type Severity Reaction Status Date / Time No Known Drug Allergies Allergy Verified 06/02/19 11:05 - Social History Does the pt smoke?: No Smoking Status: Never smoker Does the pt drink ETOH?: No Does the pt have substance abuse?: No - Immunizations Immunizations are current?: Yes Immunizations: TDAP current <10years - POLST Patient has POLST: No PD ED PE NORMAL - Vitals Vital signs reviewed: Yes - General General: Alert and oriented X 3, Well developed/nourished, Other (Appears in pain with guarded range of motion of the low back.) - Back Back: Other (Well-healing scar in the low back without any signs of infection.) - Derm Derm: Normal color, Warm and dry - Extremities Extremities: No tenderness to palpate, Normal ROM s pain, No edema, No calf tenderness / cord - Neuro Neuro: Alert and oriented X 3, No motor deficit, No sensory deficit Results - Vitals Vitals: Vital Signs - 24 hr 06/02/19 11:01 Temperature 36.2 C L Heart Rate 63 Respiratory 17 Rate Blood Pressure 137/83 H O2 Saturation 97 Oxygen O2 Source Room air PD MEDICAL DECISION MAKING - ED course Complexity details: re-evaluated patient (He is feeling improved with some medicines. He has episodic visits to the ER for his back pain. He needs to continue on with his primary care provider and back surgeon. This point we can provide short-term pain medication along with adding some anti-inflammatory of steroidal and nonsteroidal as well as some muscle relaxant and see how much improvement he has for the acute flareup of his chronic back pain.), considered differential (History of back pain with back surgery several months ago. No red flags at this point to suggest need for urgent imaging.), d/w patient Departure - Departure Disposition: 01 Home, Self Care Clinical Impression: Postoperative back pain Clinical Impression: (Ruled Out): Sciatica Condition: Stable Record reviewed to determine appropriate education?: Yes Instructions: ED Low Back Pain Injury Follow-Up: Lauren Hastings ARNP [Primary Care Provider] - Carlos Escobra MD [Physician No Access] - Prescriptions: dexAMETHasone [Decadron] 4 mg PO DAILY #7 tablet Oxycodone HCl/Acetaminophen [Percocet 5-325 mg Tablet] 1 each PO Q6H PRN #25 tablet PRN Reason: pain Comments: Heat and gentle stretching. Massage or physical therapy can be helpful for the back as well. Start the prescriptions from your orthopedic surgeon. Decadron steroid anti-inflammatory for a week. Add pain medicine if needed. Further pain medication will need to be from your primary care or orthopedics. Discharge Date/Time: 06/02/19 11:56
== END 2019-06-02 11:56 | disposition home or self-care (01) ==
LOC: ED 10:51
DX: G89.18 Other acute postprocedural pain (principal); M54.5 Low back pain
CPT/HCPCS: 96372; 99283; 99284; A9270; J1170

== ENCOUNTER 2020-09-09 18:57 | Outpatient (CLI) | payer OTHER ==
[2020-09-09 19:18] LABS: BASOPHILS # (AUTO) 0.1 10^3/uL (0.0-0.1); BASOPHILS % (AUTO) 0.6 %; EOSINOPHILS # (AUTO) 0.1 10^3/uL (0.0-0.7); EOSINOPHILS % (AUTO) 1.7 %; HGB - HEMOGLOBIN 13.4 g/dL (14.0-18.0); LYMPHOCYTES # (AUTO) 2.7 10^3/uL (1.5-3.5); LYMPHOCYTES % (AUTO) 32.9 %; MEAN CORPUSCULAR HEMOGLOBIN 29.6 pg (27.0-31.0); MEAN CORPUSCULAR HGB CONC 34.3 g/dL (32.0-36.0); MEAN CORPUSCULAR VOLUME 86.5 fL (80.0-94.0); MEAN PLATELET VOLUME 9.3 fL (7.4-11.4); MONOCYTES # (AUTO) 0.7 10^3/uL (0.0-1.0); MONOCYTES % (AUTO) 8.8 %; NEUTROPHILS # (AUTO) 4.5 10^3/uL (1.5-6.6); NEUTROPHILS % (AUTO) 55.5 %; PLT - PLATELET COUNT 271 10^3/uL (130-450); RED BLOOD COUNT 4.52 10^6/uL (4.70-6.10); RED CELL DISTRIBUTION WIDTH 12.7 % (12.0-15.0); WHITE BLOOD COUNT 8.1 x10^3/uL (4.8-10.8)
[2020-09-09 19:49] LABS: CALCIUM 8.6 mg/dL (8.5-10.3); CREATININE 0.9 mg/dL (0.6-1.2)
== END 2020-09-09 18:58 | disposition home or self-care (01) ==
LOC: LAB 18:57
PROVIDERS: ATTEND Internal Medicine
DX: L03.116 Cellulitis of left lower limb (principal); R22.42 Localized swelling, mass and lump, left lower limb
CPT/HCPCS: 36415; 80048; 85025; 85379

== ENCOUNTER 2021-03-07 08:47 | Day surgery (SDC) | payer OTHER ==
[2021-03-07] MEDS ORDERED: MIDAZOLAM 2 MG/2 ML VIAL ONE ×3 (10:41→11:13)
[2021-03-07] MEDS ORDERED: fentaNYL 250 MCG/5 ML VIAL ONE (10:41)
[2021-03-07] MEDS ORDERED: ACETAMINOPHEN 325 MG TABLET PO ONE (11:39)
[2021-03-07] MEDS ORDERED: ACETAMINOPHEN 325 MG TABLET PO SCH (12:00)
[2021-03-07 12:15] VITALS: BP 125/81
== END 2021-03-07 08:48 | disposition home or self-care (01) ==
LOC: SDS 08:47
PROVIDERS: ATTEND Surgery
PROC: 0DBN8ZZ Excision of Sigmoid Colon, Via Natural or Artificial Opening Endoscopic (ICD-10-PCS; 2021-03-07)
PROC: 0DBK8ZZ Excision of Ascending Colon, Via Natural or Artificial Opening Endoscopic (ICD-10-PCS; principal; 2021-03-07 10:15)
DX: Z12.11 Encounter for screening for malignant neoplasm of colon (principal); D12.4 Benign neoplasm of descending colon; D17.79 Benign lipomatous neoplasm of other sites; K64.8 Other hemorrhoids; G47.39 Other sleep apnea; Z80.0 Family history of malignant neoplasm of digestive organs
CPT/HCPCS: 45385; A9270; J3010

== ENCOUNTER 2021-07-04 08:00 | Outpatient (CLI) | payer OTHER ==
[2021-07-04 11:47] LABS: BASOPHILS # (AUTO) 0.1 10^3/uL (0.0-0.1); BASOPHILS % (AUTO) 0.8 %; EOSINOPHILS # (AUTO) 0.1 10^3/uL (0.0-0.7); EOSINOPHILS % (AUTO) 1.9 %; HCT - HEMATOCRIT 41.2 % (42.0-52.0); HGB - HEMOGLOBIN 13.6 g/dL (14.0-18.0); LYMPHOCYTES % (AUTO) 33.3 %; MEAN CORPUSCULAR HEMOGLOBIN 28.6 pg (27.0-31.0); MEAN CORPUSCULAR VOLUME 86.7 fL (80.0-94.0); MONOCYTES # (AUTO) 0.5 10^3/uL (0.0-1.0); MONOCYTES % (AUTO) 8.6 %; NEUTROPHILS # (AUTO) 3.3 10^3/uL (1.5-6.6); NEUTROPHILS % (AUTO) 55.1 %; PLT - PLATELET COUNT 281 10^3/uL (130-450); RED BLOOD COUNT 4.75 10^6/uL (4.70-6.10); RED CELL DISTRIBUTION WIDTH 12.8 % (12.0-15.0); WHITE BLOOD COUNT 5.9 x10^3/uL (4.8-10.8)
[2021-07-04 11:48] LABS: BILIRUBIN,URINE NEGATIVE (NEGATIVE); GLUCOSE, URINE (UA) NEGATIVE (NEGATIVE); KETONES,URINE (UA) NEGATIVE (NEGATIVE); LEUKOCYTE ESTERASE, URINE NEGATIVE (NEGATIVE); NITRITE,URINE NEGATIVE (NEGATIVE); OCCULT BLOOD,URINE NEGATIVE (NEGATIVE); PH,URINE 5.5 PH (5.0-7.5); PROTEIN,URINE NEGATIVE (NEGATIVE); UROBILINOGEN,URINE 0.2 (NORMAL) E.U./dL (NORMAL)
[2021-07-04 11:52] LABS: CLARITY,URINE CLEAR (CLEAR)
[2021-07-04 11:58] LABS: BACTERIA,URINE Rare /HPF (None Seen); RBC,URINE 0-5 /HPF (0-5); SQUAMOUS EPITHELIAL CELL,UR RARE Squamous (<= Few); WBC,URINE 0-3 /HPF (0-3)
[2021-07-04 12:08] LABS: ALBUMIN 4.5 g/dL (3.2-5.5); ALBUMIN/GLOBULIN RATIO 1.4 (1.0-2.2); ALKALINE PHOSPHATASE 75 IU/L (42-121); ALT ALANINE AMINOTRANSFERASE 20 IU/L (10-60); AST ASPARTATE AMINOTRANSFERASE 20 IU/L (10-42); BILIRUBIN,TOTAL 1.1 mg/dL (0.2-1.0); BUN - BLOOD UREA NITROGEN 31 mg/dL (6-20); CARBON DIOXIDE - CO2 25 mmol/L (21-32); CHLORIDE 106 mmol/L (101-111); CHOL/HDL RATIO 4.5 (<5.0); CHOLESTEROL 195 mg/dL; GFR - MDRD 78 (>89); GLUCOSE 98 mg/dL (70-100); HDL CHOLESTEROL 43 mg/dL; LDL CHOLESTEROL,CALCULATED 135 mg/dL; LDL/HDL RATIO 3.1 (<3.6); SODIUM 139 mmol/L (135-145); TOTAL PROTEIN 7.7 g/dL (6.7-8.2); TRIGLYCERIDES 86 mg/dL; VLDL CHOLESTEROL 17 mg/dL
[2021-07-04 12:16] LABS: THYROID STIMULATING HORMONE 2.88 uIU/mL (0.34-5.60)
== END 2021-07-04 23:59 | disposition home or self-care (01) ==
LOC: LAB.N 08:00
PROVIDERS: ATTEND Nurse Practitioner
DX: R53.83 Other fatigue (principal); Z12.5 Encounter for screening for malignant neoplasm of prostate; F41.8 Other specified anxiety disorders
CPT/HCPCS: 36415; 80053; 80061; 81001; 83721; 84153; 84443; 85025; 87086

== ENCOUNTER 2021-07-04 08:42 | Outpatient (CLI) | payer OTHER ==
--- NOTE | 2021-07-04 16:05 | XRAY Report ---
PROCEDURE: Knee 4 View BILAT INDICATIONS: CHRONIC BILATERAL KNEE PX TECHNIQUE: 3 views of the right and left knee(s) were acquired. COMPARISON: None. FINDINGS: Bones: No fractures or dislocations. No suspicious bony lesions. Mild osteoarthritic degenerative c hanges noted in the medial and patellofemoral compartments of the right knee. Mild osteoarthritic deg enerative changes noted in all 3 compartments of the left knee. Soft tissues: No joint effusion. No suspicious soft tissue calcifications. IMPRESSION: 1. Mild medial and patellofemoral compartment right knee osteoarthritis. 2. Mild tricompartmental left knee osteoarthritis. Reviewed by: Yoli Hollis MD, PhD on 07/04/2021 4:04 PM PDT Approved by: Yoli Hollis MD, PhD on 07/04/2021 4:04 PM PDT Station ID: [id number]
== END 2021-07-04 08:43 | disposition home or self-care (01) ==
LOC: DI.N 08:42
PROVIDERS: ATTEND Nurse Practitioner
DX: M17.0 Bilateral primary osteoarthritis of knee (principal)

== ENCOUNTER 2021-08-28 11:42 | Outpatient (CLI) | payer OTHER ==
--- NOTE | 2021-08-28 12:26 | XRAY Report ---
PROCEDURE: Ribs Bilat w/Chest 4 View INDICATIONS: RIB PAIN, RIGHT SIDE TECHNIQUE: 2 views of the bilateral ribs were acquired, along with a single view chest. COMPARISON: November 02, 2018 FINDINGS: SUPPORT DEVICES: None. LUNGS/PLEURA: No focal consolidation, pleural effusion or space-occupying pneumothorax. MEDIASTINUM: The cardiomediastinal silhouette is within normal limits. BONES/SOFT TISSUES: No acute abnormality. Specifically, no acute, displaced rib fracture. IMPRESSION: 1.No acute cardiopulmonary abnormality. 2.No acute osseous abnormality of the ribs. Reviewed by: Stepan Bailey MD on 08/28/2021 12:24 PM PDT Approved by: Stepan Bailey MD on 08/28/2021 12:24 PM PDT Station ID: [id number]
== END 2021-08-28 11:43 | disposition home or self-care (01) ==
LOC: DI 11:42
PROVIDERS: ATTEND Family Medicine
DX: R07.81 Pleurodynia (principal)

== ENCOUNTER 2021-11-30 16:57 | Emergency (ER) | payer OTHER ==
[2021-11-30 17:01] VITALS: BP 161/79
[2021-11-30] MEDS: PROPARACAINE 0.5% OPHTH DROPS 15 ML EACHEYE STA (17:13)
--- NOTE | 2021-11-30 17:15 | ED Physician Documentation ---
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 Vision is mildly blurry. No other injuries. He irrigated them at work. He does not wear contacts. Review of Systems Constitutional: reports: Reviewed and negative Eyes: reports: Reviewed and negative PD PAST MEDICAL HISTORY - Past Medical History Cardiovascular: None Respiratory: None Endocrine/Autoimmune: None GI: None : None HEENT: None Psych: None Musculoskeletal: None Derm: None - Past Surgical History Past Surgical History: Yes General: Colonoscopy Ortho: Arthroscopic surgery - Present Medications Home Medications: Ambulatory Orders Medication Instructions Recorded Confirmed Oxycodone HCl/Acetaminophen 1 - 2 each PO Q6H PRN #14 tablet 11/02/18 [Percocet 5-325 mg Tablet] Amitriptyline HCl 10 mg PO 02/23/19 02/23/19 Clindamycin HCl [Clindamycin 300MG 300 mg PO Q6H #28 capsule 02/23/19 CAP] Meloxicam [Mobic] 7.5 mg PO BID PRN #20 tablet 02/23/19 Oxycodone HCl/Acetaminophen 1 each PO Q6H PRN #25 tablet 06/02/19 [Percocet 5-325 mg Tablet] dexAMETHasone [Decadron] 4 mg PO DAILY #7 tablet 06/02/19 - Allergies Allergies/Adverse Reactions: Allergies Allergy/AdvReac Type Severity Reaction Status Date / Time No Known Drug Allergies Allergy Verified 11/30/21 17:01 - Social History Does the pt smoke?: No Smoking Status: Never smoker Does the pt drink ETOH?: No Does the pt have substance abuse?: No - Immunizations Immunizations are current?: Yes Immunizations: TDAP current <10years - POLST Patient has POLST: No PD ED PE NORMAL - Vitals Vital signs reviewed: Yes - General General: Alert and oriented X 3, No acute distress - HEENT HEENT: PERRL, EOMI, Other (Mildly and injected bilateral conjunctivitis, no fluorescein uptake) - Neuro Neuro: Alert and oriented X 3, Normal speech Eye Opening: Spontaneous Motor: Obeys Commands Verbal: Oriented GCS Score: 15 Results - Vitals Vitals: Vital Signs - 24 hr 11/30/21 16:59 Temperature 36.1 C L Heart Rate 68 Respiratory 14 Rate Blood Pressure 161/79 H O2 Saturation 95 Oxygen O2 Source Room air PD MEDICAL DECISION MAKING - ED course ED course: Eyes were thoroughly irrigated again after proparacaine, symptoms were gone after proparacaine. He was given about 1.5 mL of proparacaine that was diluted in a 1:9 ratio to use no more than 24 hours. Departure - Departure Disposition: 01 Home, Self Care Clinical Impression: Chemical conjunctivitis of both eyes Condition: Good Record reviewed to determine appropriate education?: Yes Instructions: ED Chemical Conjunctivitis Comments: If not better by Saturday follow-up with the evaporator repairer, but she should be completely better by then, return if worse. You can use 1 drop in each eye of the 129 diluted proparacaine solution I prepared for you, not more than 24 hours.
== END 2021-11-30 17:28 | disposition home or self-care (01) ==
LOC: ED 16:57
DX: T59.91XA Toxic effect of unspecified gases, fumes and vapors, accidental (unintentional), initial encounter (principal); H10.213 Acute toxic conjunctivitis, bilateral; Y93.89 Activity, other specified; Y92.69 Other specified industrial and construction area as the place of occurrence of the external cause; Y99.0 Civilian activity done for income or pay
CPT/HCPCS: 1040M; 99282; J3490

== ENCOUNTER 2022-01-08 10:49 | Outpatient (CLI) | payer OTHER | END 2022-01-08 10:50 | disposition critical access hospital (66) | LOC: EMS 10:49 | DX: R07.9 Chest pain, unspecified (principal) | CPT/HCPCS: A0425; A0427 ==

== ENCOUNTER 2022-01-08 11:09 | Emergency (ER) | payer OTHER ==
[2022-01-08] MEDS ORDERED: SODIUM CHLORIDE 0.9% 1,000 ML IV STA (11:14)
[2022-01-08 11:31] LABS: BASOPHILS % (AUTO) 0.5 %; EOSINOPHILS # (AUTO) 0.1 10^3/uL (0.0-0.7); EOSINOPHILS % (AUTO) 1.3 %; HCT - HEMATOCRIT 38.7 % (42.0-52.0); HGB - HEMOGLOBIN 13.2 g/dL (14.0-18.0); LYMPHOCYTES # (AUTO) 2.1 10^3/uL (1.5-3.5); LYMPHOCYTES % (AUTO) 26.1 %; MEAN CORPUSCULAR HEMOGLOBIN 29.3 pg (27.0-31.0); MEAN CORPUSCULAR HGB CONC 34.1 g/dL (32.0-36.0); MEAN CORPUSCULAR VOLUME 85.8 fL (80.0-94.0); MEAN PLATELET VOLUME 9.3 fL (7.4-11.4); MONOCYTES # (AUTO) 0.8 10^3/uL (0.0-1.0); MONOCYTES % (AUTO) 9.3 %; NEUTROPHILS # (AUTO) 5.1 10^3/uL (1.5-6.6); NEUTROPHILS % (AUTO) 62.4 %; PLT - PLATELET COUNT 252 10^3/uL (130-450); RED BLOOD COUNT 4.51 10^6/uL (4.70-6.10); RED CELL DISTRIBUTION WIDTH 12.6 % (12.0-15.0); WHITE BLOOD COUNT 8.2 x10^3/uL (4.8-10.8)
--- NOTE | 2022-01-08 11:38 | XRAY Report ---
PROCEDURE: Chest 1 View X-Ray INDICATIONS: Chest Pain TECHNIQUE: One view of the chest was acquired. COMPARISON: 08/28/2021 FINDINGS: Surgical changes and devices: None. Lungs and pleura: No pleural effusions or pneumothorax. Lungs are clear. Mediastinum: Mediastinal contours appear normal. Heart size is normal. Bones and chest wall: No suspicious bony lesions. Overlying soft tissues appear unremarkable. IMPRESSION: Chest without acute cardiopulmonary abnormalities. No focal airspace disease. Reviewed by: Reji Swift MD on 01/08/2022 11:36 AM PST Approved by: Reji Swift MD on 01/08/2022 11:36 AM [facility] Station ID: [id number]
[2022-01-08 11:42] LABS: D-DIMER < 200.0 ng/mL (200.0-255.0)
[2022-01-08 11:48] LABS: ALBUMIN 4.6 g/dL (3.2-5.5); ALBUMIN/GLOBULIN RATIO 1.7 (1.0-2.2); BILIRUBIN,TOTAL 1.1 mg/dL (0.2-1.0); POTASSIUM 3.8 mmol/L (3.5-5.0); TOTAL PROTEIN 7.3 g/dL (6.7-8.2)
[2022-01-08 11:57] LABS: INR 1.1 (0.8-1.2); PT - PROTHROMBIN TIME 12.1 secs (9.9-12.6)
--- NOTE | 2022-01-08 12:09 | ED Physician Documentation ---
PD HPI CHEST PAIN - Stated complaint Stated Complaint: CP - Chief complaint Chief Complaint: Cardiac - History obtained from History obtained from: Patient, EMS - Additional information Additional information: The patient comes to the emergency department chief complaint of left-sided chest pain has been going on on and off for the last 3 weeks. He states that the sharp pain above his left breast and hurts worse with a deep breath. He also has noticed worsening with certain movements. The patient states that he has no known cardiac history. He was told by his doctor sometime ago that his blood pressure is high and that he should have further evaluation for this. The patient went in to the clinic for this today and was sent here because of a subtle change on his EKG in the office, compared with 1 from 12 years ago, in the setting of high blood pressure and chest pain. The patient denies any radiation the pain. No palpitations, swelling, nausea, or shortness of breath. He has pain with deep breath which sometimes gives him a sense of shortness of breath. No other complaints at this time. No fevers or chills. No cough. He thinks his father may have had an ME at some point, but his father about 7 years ago after surgery at the age of 71, so he is not sure. Review of Systems Ten Systems: 10 systems reviewed and negative Constitutional: reports: Reviewed and negative Eyes: reports: Reviewed and negative Ears: reports: Reviewed and negative Nose: reports: Reviewed and negative Throat: reports: Reviewed and negative Cardiac: reports: Chest pain / pressure Respiratory: reports: Reviewed and negative. denies: Dyspnea GI: reports: Reviewed and negative : reports: Reviewed and negative Skin: reports: Reviewed and negative Musculoskeletal: reports: Reviewed and negative Neurologic: reports: Reviewed and negative Psychiatric: reports: Reviewed and negative Endocrine: reports: Reviewed and negative Immunocompromised: reports: Reviewed and negative PD PAST MEDICAL HISTORY - Past Medical History Past Medical History: Yes Cardiovascular: None Respiratory: None Neuro: None Endocrine/Autoimmune: None GI: None : None HEENT: None Psych: Depression Musculoskeletal: Chronic back pain Derm: None - Past Surgical History Past Surgical History: Yes General: Colonoscopy Ortho: Arthroscopic surgery, Spine surgery - Present Medications Home Medications: Ambulatory Orders Medication Instructions Recorded Confirmed buPROPion [Wellbutrin Xl] 150 mg ORAL DAILY 01/08/22 01/08/22 - Allergies Allergies/Adverse Reactions: Allergies Allergy/AdvReac Type Severity Reaction Status Date / Time No Known Drug Allergies Allergy Verified 01/08/22 11:20 - Social History Does the pt smoke?: No Smoking Status: Never smoker Does the pt drink ETOH?: No Does the pt have substance abuse?: No - Immunizations Immunizations are current?: Yes Immunizations: TDAP current <10years - POLST Patient has POLST: No PD ED PE NORMAL - Vitals Vital signs reviewed: Yes - General General: Alert and oriented X 3, No acute distress, Well developed/nourished - HEENT HEENT: Atraumatic, PERRL, EOMI, Moist mucous membranes - Neck Neck: Supple, no meningeal sign - Cardiac Cardiac: RRR, No murmur, Strong equal pulses - Respiratory Respiratory: No respiratory distress, Clear bilaterally - Abdomen Abdomen: Soft, Non tender, Non distended - Derm Derm: Normal color, Warm and dry, No rash - Extremities Extremities: No deformity, No edema, No calf tenderness / cord - Neuro Neuro: Alert and oriented X 3, 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 Results - Vitals Vitals: Vital Signs - 24 hr 01/08/22 01/08/22 11:21 11:32 Temperature 36.1 C L Heart Rate 56 L 54 L Respiratory 14 10 L Rate Blood Pressure 147/93 H 130/92 H O2 Saturation 98 97 Oxygen O2 Source Room air - EKG (time done) 1109 Rate: Rate (enter#) (53) Rhythm: NSR [place]: Normal Intervals: Normal IA, Other (Right ventricular conduction delay versus right ventricular hypertrophy with RSR prime in V1 V2) QRS: Normal Ischemia: Normal ST segments Compare to prior EKG: Other (Improved since EKG 12 years ago; No concerning findings) Computer interpretation: Agree with computer - Labs Labs: Laboratory Tests 01/08/22 01/08/22 01/08/22 11:27 11:27 11:27 WBC 8.2 RBC 4.51 L Hgb 13.2 L Hct 38.7 L MCV 85.8 MCH 29.3 MCHC 34.1 RDW 12.6 Plt Count 252 MPV 9.3 Neut # (Auto) 5.1 Lymph # (Auto) 2.1 [place] # (Auto) 0.8 Eos # (Auto) 0.1 Baso # (Auto) 0.0 Absolute Nucleated RBC 0.00 Nucleated RBC % 0.0 PT 12.1 INR 1.1 D-Dimer < 200.0 L Sodium 135 Potassium 3.8 Chloride 101 Carbon Dioxide 24 Anion Gap 10.0 BUN 28 H Creatinine 1.0 Estimated GFR (MDRD) 78 L Glucose 103 H Calcium 9.0 Total Bilirubin 1.1 H AST 19 ALT 17 Alkaline Phosphatase 77 Troponin I High Sens Total Protein 7.3 Albumin 4.6 Globulin 2.7 Albumin/Globulin Ratio 1.7 Lipase 44 01/08/22 11:27 WBC RBC Hgb Hct MCV MCH MCHC RDW Plt Count MPV Neut # (Auto) Lymph # (Auto) [place] # (Auto) Eos # (Auto) Baso # (Auto) Absolute Nucleated RBC Nucleated RBC % PT INR D-Dimer Sodium Potassium Chloride Carbon Dioxide Anion Gap BUN Creatinine Estimated GFR (MDRD) Glucose Calcium Total Bilirubin AST ALT Alkaline Phosphatase Troponin I High Sens 7.0 Total Protein Albumin Globulin Albumin/Globulin Ratio Lipase - Rads (name of study) Chest x-ray Radiology: Final report received, EMP read indepedently, See rad report (Negative) PD MEDICAL DECISION MAKING - ED course Complexity details: reviewed old records, reviewed results, re-evaluated patient, considered differential, d/w patient ED course: The patient was well-appearing in the emergency department, and had pain that sounded more musculoskeletal in nature. He was worked up with labs, which were unremarkable including negative troponin, and EKG which was mostly normal and showed no evidence of ischemia. Chest x-ray was unremarkable. The patient had been given aspirin and nitroglycerin in route with out improvement in his pain, and I discussed with him that this is unlikely to be cardiac chest pain, given the symptoms and physical exam findings. I discussed with him that if he would like to close the loop on the possibility of any cardiac contributing factors, he could talk to his doctor about having a stress test done. The patient states he had one about 6 years ago, but is not sure why. However, it was negative at that time. The patient's blood pressure is not high here and I discussed with him that he should talk further with his primary care physician about whether he should be on any medications for blood pressure. We have discussed the usual indications for return. Departure - Departure Disposition: 01 Home, Self Care Clinical Impression: Chest wall pain Condition: Stable Instructions: ED Chest Pain Costochondritis, ED Strain Chest Wall Comments: Your tests all look good here. It is important that you follow-up with your primary care physician to discuss whether you should be on blood pressure medicine chronically. We will not start this from the ER, as your blood pressure was normal here. Regarding your chest pain, you should also talk to your doctor about whether he should have another stress test done. There is no evidence of a serious cause of your chest pain today and based on this, as well as the description of your pain and the physical exam findings, it seems most likely that this is coming from your chest wall, not your vital organs. You may use ice, heat, stretching, ibuprofen, and Tylenol to help with this. This should be expected to resolve on its own, given time. If you develop severe chest pain or shortness of breath, or feel otherwise unwell with your chest pain, please return to the emergency department immediately.
[2022-01-08] MEDS ORDERED: KETOROLAC 30 MG/ML VIAL IVP STA (12:25)
[2022-01-08 13:03] VITALS: BP 124/88
== END 2022-01-08 13:02 | disposition home or self-care (01) ==
LOC: EDUNIT# → ED 11:09
DX: R07.89 Other chest pain (principal)
CPT/HCPCS: 36415; 80053; 83690; 84484; 85025; 85379; 85610; 93005; 96374; 99284

== ENCOUNTER 2022-01-23 09:17 | Outpatient (CLI) | payer OTHER ==
--- NOTE | 2022-01-23 11:02 | CT Report ---
PROCEDURE: CHEST WO INDICATIONS: RIGHT RIB PAIN TECHNIQUE: Noncontrast 1mm axial images were acquired from the pulmonary apices to the posterior costophrenic an gles. Axial 5 mm soft tissue kernel reconstructions were performed as well as 8 mm axial MIP and cor onal and sagittal 5 mm reformations. For radiation dose reduction, the following was used: automate d exposure control, adjustment of mA and/or kV according to patient size. COMPARISON: Correlation is made with prior chest radiograph, 01/08/2022. Correlation is also made with report only of the abdomen and pelvis CT 07/05/2018. FINDINGS: Image quality: Excellent. Lungs and pleura: No acute air space opacities. No pleural effusions or pneumothorax. Central and peripheral airways are patent and normal in caliber. Mediastinum: Heart size is normal. No pericardial effusion. No mediastinal adenopathy by size crit eria. Thoracic aorta and central pulmonary arteries are normal in size. Esophagus is normal in solomon sofia. No hiatal hernia. Bones and chest wall: In this patient with this given history, scrutiny is given to the right ribs. No right rib abnormality is identified. No suspicious bony lesions. No vertebral body compression fractures. Age-appropriate degenerative c hanges are seen. There is accentuated thoracic kyphosis. No axillary or supraclavicular adenopathy by size criteria. The thyroid is normal in size and there are no incidental findings. Abdomen: Incidental note is made of a simple appearing moderate in density cyst along the posterior aspect of the left kidney, as on series 3 image 62 measuring 2.9 cm. Visualized upper abdominal solid organs and bowel loops appear normal in the absence of contrast. IMPRESSION: No right rib abnormality can be seen. Incidental note is made of: Simple appearing left renal cyst Reviewed by: Zack Mcnamara MD on 01/23/2022 10:01 AM [facility] Approved by: Zack Mcnamara MD on 01/23/2022 10:01 AM [facility] Station ID: [id number]
== END 2022-01-23 09:18 | disposition home or self-care (01) ==
LOC: DI 09:17
PROVIDERS: ATTEND Physician Assistant
DX: R07.81 Pleurodynia (principal)

== ENCOUNTER 2022-02-13 07:31 | Outpatient (CLI) | payer OTHER ==
--- NOTE | 2022-02-13 08:35 | CARDIAC PROCEDURE NOTE ---
Stress Test Report Service Date: 02/13/22 Service Time: 08:00 Ordering Provider: Alma Delia Prado PA Indication for Test: Assess chest discomfort. Significant Medical History: -Arik is referred for an exercise tolerance test to evaluate left-sided chest pain that has been present for intermittently for the past 4-5 weeks. He describes it as a sharp pain above his left breast that is worse with taking a deep breath, certain movements and evident upon massaging his chest wall. He was seen for a clinic visit at which time his blood pressure was found to be elevated (as had been documented previously) and there was concern for a subtle change in his EKG. He was started on losartan and referred to the [facility] Emergency Department, where he was formally evaluated with a negative troponin and nondiagnostic EKG. -Today he tells me that he continues having the discomfort intermittently. There is no discernable pattern of occurrence though it is not more likely to occur with activity and his stamina remains intact. He describes the discomfort as rather transient in occurrence, not associated with diaphoresis, increased work of breathing or palpitations. He has been taking the losartan daily but has not yet been able to obtain a blood pressure cuff to do monitoring. His chart also notes a history of heavy snoring and when queried about this today he confirms this history and thinks that perhaps he has apneic episodes, which he awakens from periodically. He reports that he neglected to take his losartan this morning prior to coming in for the ETT. Cardiac Risk Factors: Positive for recently diagnosed hypertension and family history of CAD in his father; no known hyperlipidemia, diabetes or tobacco smoking. Type of Stress Test: Exercise Treadmill Test (ETT) Procedure: -Exercise Treadmill Test- After signing informed consent, the patient performed treadmill exercise using a Sonny protocol. The patient exercised for 9 minutes 49 seconds and achieved a peak heart rate of 146 (86 percent predicted maximum heart rate for age), and an estimated workload of 11.5 METS. The test was terminated due to fatigue/shortness of breath and chest discomfort. Resting heart rate: 67 Peak heart rate: 146 Normal response to exercise. Resting BP: 144/88 Peak BP: 189/78 Borderline resting BP elevation with physiologic response to exercise. Rhythm during exercise: Sinus rhythm throughout. Symptoms: Patient had onset of his usual chest discomfort in stage 3 and becoming significant enough to prompt discontinuation of exercise in early stage 4; chest wall was tender to palpation and discomfort was fully resolved by 4 minutes of recovery. EKG at rest showed normal sinus rhythm with incomplete right bundle branch block pattern. EKG at peak stress showed J-point depression with upsloping ST segments, NOT meeting diagnostic criteria for ischemia. In Recovery heart rate rapidly/normally decreased to baseline level; BP decreased then increased again, remaining moderately elevated at 5:00 (169/87). No imaging was ordered with this stress test. IRangel MD, was present throughout this treadmill stress study and supervised it in its entirety. Summary: 1) Exercise tolerance average for age as evidenced by ROCKY of 2.7%. 2) Normal ST segments on resting EKG, in setting of incomplete right bundle branch block. 3) Adequate level of exercise was achieved on this treadmill stress test. 4) Borderline resting BP, with physiologic response to exercise. 5) No ischemic changes by EKG criteria were seen at peak stress. 6) No imaging was ordered with this test CONCLUSIONS: 1) Patient experienced his usual chest discomfort, with features implicating a musculoskeletal origin and no evidence of inducible ischemia on EKG. This is a reassuring low risk result. 2) He is encouraged to obtain the recommended BP cuff and instructed in obtaining a BP data set for review with his provider in a few weeks. 3) We discussed his sleep concerns and the fact that if he does have untreated sleep apnea this could contribute to his hypertension, as well as the incomplete right bundle branch block seen on EKG. Therefore he will review his symptomatology further with his spouse and discuss at an upcoming provider visit, with consideration of undergoing formal sleep apnea evaluation.
== END 2022-02-13 07:32 | disposition home or self-care (01) ==
LOC: DI 07:31
PROVIDERS: ATTEND Physician Assistant
DX: I45.10 Unspecified right bundle-branch block (principal); I10 Essential (primary) hypertension; Z82.49 Family history of ischemic heart disease and other diseases of the circulatory system
CPT/HCPCS: 93016; 93017; 93018

== ENCOUNTER 2022-07-03 08:02 | Outpatient (CLI) | payer OTHER ==
--- NOTE | 2022-07-03 16:17 | CT Report ---
PROCEDURE: LUMBAR SPINE WO INDICATIONS: LUMBAR BACK PAIN TECHNIQUE: Noncontrast 3 mm thick sections acquired from the T12 level to the sacrum. Sagittal and coronal refo rmats were constructed. For radiation dose reduction, the following was used: automated exposure co ntrol, adjustment of mA and/or kV according to patient size. COMPARISON: None. FINDINGS: Postsurgical changes of L4-S1 posterior fixation by means of bilateral rods and pedicle screws. There is also an anterior fixation screw in the anterior S1 vertebral body. No hardware fracture or failur e identified. The interbody spacer seen previously at L5-S1 has been removed and replaced with presum ed morselized bone graft material. There is developing ossification/ankylosis across the L5-S1 disc s pace. Alignment is within normal limits. Vertebral body heights maintained. Regional soft tissues are normal. T12-L1: No spinal canal or neural foraminal stenosis. L1-L2: Posterior osteophytic ridging of the endplates and diffuse disc bulge flatten and indent th e ventral thecal sac. Buckling of the ligamentum flavum and bulky facet hypertrophy further contribut e to overall mild to moderate spinal canal stenosis. There is mild bilateral foraminal stenosis. L2-L3: Moderate spinal canal stenosis due to diffuse disc bulge and a superimposed broad-based knit tubing dyer ior disc protrusion with posterior osteophytic ridging of the endplates. Bulky facet hypertrophy and calcified buckling of ligamentum flavum further contributes to the spinal canal stenosis. These facto rs all combine to produce mild bilateral neural foraminal narrowing as well. L3-L4: Moderate spinal canal stenosis due to posterior discussed by complex and diffuse disc bulge along with buckling of ligamentum flavum and bulky facet hypertrophy. Mild bilateral neural foraminal narrowing. L4-L5: Wide decompression of the spinal canal. No neural foraminal stenosis. L5-S1: Wide decompression of the spinal canal. Mild left neural foraminal stenosis. IMPRESSION: Moderate spinal canal stenosis at L2-L3 and L3-L4. New anterior fixation changes at L5-S1 with removal of previously seen interbody device and placement of presumed morselized bone graft material in the L5-S1 disc space. Reviewed by: Stefan Gastelum MD on 07/03/2022 4:16 PM PDT Approved by: Stefan Gastelum MD on 07/03/2022 4:16 PM PDT Station ID: [id number]
== END 2022-07-03 08:03 | disposition home or self-care (01) ==
LOC: DI 08:02
PROVIDERS: ATTEND Physician Assistant
DX: M48.061 Spinal stenosis, lumbar region without neurogenic claudication (principal); M51.36 Other intervertebral disc degeneration, lumbar region; M47.816 Spondylosis without myelopathy or radiculopathy, lumbar region; Z98.1 Arthrodesis status

== ENCOUNTER 2022-07-05 09:43 | Outpatient (CLI) | payer OTHER ==
[2022-07-05 12:12] LABS: ESTIMATED AVERAGE GLUCOSE 105 mg/dL (70-100); HEMOGLOBIN A1c% 5.3 % (4.27-6.07)
[2022-07-05 12:19] LABS: ALBUMIN 4.5 g/dL (3.2-5.5); ALBUMIN/GLOBULIN RATIO 1.6 (1.0-2.2); BILIRUBIN,TOTAL 0.7 mg/dL (0.2-1.0); CALCIUM 9.1 mg/dL (8.5-10.3); CREATININE 0.9 mg/dL (0.6-1.2); TOTAL PROTEIN 7.4 g/dL (6.7-8.2)
== END 2022-07-05 09:44 | disposition home or self-care (01) ==
LOC: LAB.N 09:43
PROVIDERS: ATTEND Physician Assistant
DX: I10 Essential (primary) hypertension (principal); Z13.1 Encounter for screening for diabetes mellitus
CPT/HCPCS: 36415; 80053; 83036

== ENCOUNTER 2022-07-11 09:11 | Outpatient (CLI) | payer OTHER ==
[2022-07-11 10:12] VITALS: BP 128/72
--- NOTE | 2022-07-11 10:12 | SLEEP CARE CONSULTATION ---
Information from patient questionnaire entered by Rashid Sandoval. I have reviewed and concur with the information entered by Rashid Sandoval. This document represents the service I personally performed and the decisions made by me, Idalia Schwartz ARNP. History of Present Illness Service Date and Time: 07/11/2022 0911 Reason for Visit: New patient Chief Complaint: reports: Unrefreshed sleep, Snoring, Observed pauses in breathing Date of Onset: AT LEAST 8 YEARS Usual bedtime: 1AM Time it takes to fall asleep: 1-1.5 HOURS Snores at night: Yes Observed to quit breathing while asleep: Yes Sleeps alone due to snoring: No Number of times waking at night: 2-3 Reasons for waking at night: reports: Pain, Bathroom. denies: Choking, Snoring, Gasping for air Toss, Turn, or Twitch while sleeping: No Recalls having dreams: No Usually gets out of bed at: 7AM Feels refreshed in the morning: No Morning headache: No Sleepy or fatigued during the day: Yes (no unintentional naps) Ever fallen asleep while driving: No Takes day naps: No Dreams during day naps: No Prior sleep studies: No Additional HPI information: I had the pleasure of seeing MARIE NICOLE today regarding the possibility of him having a sleep disorder. His current complaints are snoring and observed pauses in breathing. He states his tells him that he snores loudly. He also says that when sitting watching TV he will have gasps at end of breaths while awake. He states that he does not wake up feeling refreshed. He is okay through the day and does not take naps. He denies unintentional naps as well. He states his will wake him up to get him to stop snoring. He has a history of hypertension and depression. 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 Patient is and lives in [place]. Have you smoked in the past 12 months: No Alcohol use: No Caffeine use: Yes Caffeine amount and frequency: 2 OR 3 DAILY Family History Family history of sleep disordered breathing: Yes Family Hx Sleep Apnea: Father: Snoring, Sleep apnea - Treated Allergies and Home Medications Known drug allergies: No Drug allergies reviewed: Yes (NKDA) Home medication list reviewed: Yes Allergy and home medication list: Allergies No Known Drug Allergies Allergy (Verified 01/08/22 11:20) Medications: Losartan Bupropion Review of Systems Cardiovascular: reports: high blood pressure, leg or foot swelling Respiratory: reports: shortness of breath Psychiatric: reports: depression Musculoskeletal: reports: back pain, mobility problems Physical Exam Vital signs obtained and entered by: CAREY KESSLER Blood Pressure: 128/72 (LEFT ARM ) Cuff size: regular Heart Rate: 68 O2 Saturation: 97 Height: 6 ft 3 in Weight: 268 lb Body Mass Index: 33.5 BMI Classification: Obese Neck circumference: 17 (INCHES) Nostrils: patent to airflow Mouth and throat: narrow oropharynx Soft palate: normal Hard palate: arched Uvula: normal Uvula visualization: 0% Mallampati Class IV Tongue: normal in size Tonsils: 1+ Neck: normal w/o lymphadenopathy or thyromegaly Heart: regular rate and rhythm Lungs: clear bilaterally Impression and Plan 1. Suspected Obstructive Sleep Apnea-Hypopnea Syndrome, as suggested by a history of loud and irregular snoring, observed cessation of breath while asleep and unrefreshed sleep. Narrow oropharynx and obesity are common predisposing factors for obstructive sleep apnea-hypopnea syndrome. I recommend proceeding to polysomnography to confirm the diagnosis and to assess severity. If the patient has significant sleep disordered breathing, a manual CPAP titration study will also be performed to find the optimal treatment pressure. I informed the patient of what the sleep studies involve and after some discussion, obtained agreement to proceed. The pathophysiology of obstructive sleep apnea-hypopnea syndrome was discussed with the patient and health risks of cardiovascular and cerebrovascular disease if not treated. Risks of drowsy driving discussed in detail and patient advised to avoid long distance driving and to seedling puller at the first sign of drowsiness. Patient agreed to plan. * Schedule polysomnography * Avoid long distance driving or driving when feeling sleepy. * Avoid alcohol, sedative and muscle relaxant around bedtime. * Attempt to lose weight. * Review instructions provided by trained office staff on how to prepare for the sleep study. * Return for follow-up after sleep study completed. Counseling Topics: Weight loss health impact Visit Type: In Office Time Spent with Patient (minutes): 31 Provider Statement: I spent 100% of the Face to Face Visit with the patient with greater than 50% spent counseling the patient and coordination of care.
== END 2022-07-11 09:12 | disposition home or self-care (01) ==
LOC: SC 09:11
PROVIDERS: ATTEND Nurse Practitioner Family
DX: R06.83 Snoring (principal); G47.8 Other sleep disorders; R06.81 Apnea, not elsewhere classified; I10 Essential (primary) hypertension; F32.A Depression, unspecified; E66.9 Obesity, unspecified; Z68.33 Body mass index [BMI] 33.0-33.9, adult
CPT/HCPCS: 99203; 99212

== ENCOUNTER 2022-07-21 17:15 | Emergency (ER) | payer OTHER ==
[2022-07-21 17:26] VITALS: BP 141/79
[2022-07-21] MEDS ORDERED: KETOROLAC 60 MG/2 ML VIAL IM STA (17:38)
[2022-07-21] MEDS ORDERED: HYDROmorphone 1 MG/ML CARPUJECT IM STA (17:38)
[2022-07-21] MEDS ORDERED: ONDANSETRON ODT 4 MG TABLET TL STA (17:38)
--- NOTE | 2022-07-21 17:44 | ED Physician Documentation ---
PD HPI BACK PAIN - Stated complaint Stated Complaint: BACK PX - Chief complaint Chief Complaint: Back Pain - History obtained from History obtained from: Patient - Additional information Additional information: 52-year-old gentleman with an extensive history of back issues status post multiple surgeries most recently about 3 years ago. The last 6 months he has had increasing back pain, higher in the lumbar spine than his prior pain. It suddenly flared today at 1130 without specific reason. Its near L1-L2. Is worse with bending and twisting. He takes cyclobenzaprine for his pain, but currently on no other meds. Denies weakness, numbness, tingling, saddle anesthesia, or fevers. He had a CT of the lumbar spine ordered by his primary care just in the last few weeks demonstrating multiple bulges causing moderate stenosis at L2-L3 and L3-L4 Review of Systems Constitutional: denies: Fever, Chills Throat: reports: Reviewed and negative Cardiac: reports: Reviewed and negative Respiratory: reports: Reviewed and negative PD PAST MEDICAL HISTORY - Past Medical History Cardiovascular: None Respiratory: None Neuro: None Endocrine/Autoimmune: None GI: None : None HEENT: None Psych: Depression Musculoskeletal: Chronic back pain Derm: None - Past Surgical History Past Surgical History: Yes General: Colonoscopy Ortho: Arthroscopic surgery, Spine surgery - Present Medications Home Medications: Ambulatory Orders Medication Instructions Recorded Confirmed buPROPion [Wellbutrin Xl] 150 mg ORAL DAILY 01/08/22 07/21/22 Cyclobenzaprine [Flexeril] 10 mg PO TID PRN 07/21/22 07/21/22 Losartan [Cozaar] 50 mg PO DAILY 07/21/22 07/21/22 Oxycodone HCl/Acetaminophen 1 - 2 each PO Q6H PRN #20 tablet 07/21/22 [Percocet 5-325 mg Tablet] - Allergies Allergies/Adverse Reactions: Allergies Allergy/AdvReac Type Severity Reaction Status Date / Time No Known Drug Allergies Allergy Verified 01/08/22 11:20 - Social History Does the pt smoke?: No Smoking Status: Never smoker Does the pt drink ETOH?: No Does the pt have substance abuse?: No - Immunizations Immunizations are current?: Yes Immunizations: TDAP current <10years - POLST Patient has POLST: No PD ED PE NORMAL - Vitals Vital signs reviewed: Yes - General General: Alert and oriented X 3, Other (He is slightly uncomfortable at rest but really winces with motion.) - Abdomen Abdomen: Normal bowel sounds, Soft, Non tender - Back Back: Other (Tender to the upper lumbar spine) - Extremities Extremities: Other (The patient has equal and normal Achilles and patellar reflexes bilaterally. Normal sensation in all areas of the legs. Patient denies saddle anesthesia. Normal strength in flexion-extension at the ankles, knees, and flexion of the hips.) - Neuro Neuro: Alert and oriented X 3, Normal speech Results - Vitals Vitals: Vital Signs - 24 hr 07/21/22 17:23 Temperature 36.3 C L Heart Rate 90 Respiratory 16 Rate Blood Pressure 141/79 H O2 Saturation 98 Oxygen O2 Source Room air PD MEDICAL DECISION MAKING - ED course ED course: This patient has seemingly uncomplicated musculoskeletal back pain. The patient has no "red flags." Specifically denies IV drug use, fevers, incontinence, saddle anesthesia. Spinal epidural abscess was considered, given that the pa tient has no fever, is not diabetic, has no spinal tenderness, does not use IV drugs, and has no bilateral neurologic symptoms, the diagnosis of spinal epidural abscess is considered exceedingly unlikely. Departure - Departure Disposition: 01 Home, Self Care Clinical Impression: Back pain Qualifiers: Back pain location: low back pain Chronicity: acute Back pain laterality: midline Sciatica presence: without sciatica Qualified Code(s): M54.50 - Low back pain, unspecified Condition: Good Record reviewed to determine appropriate education?: Yes Instructions: ED Neck Back Pain General Prescriptions: Oxycodone HCl/Acetaminophen [Percocet 5-325 mg Tablet] 1 - 2 each PO Q6H PRN #20 tablet PRN Reason: pain Comments: Follow-up with your primary care physician for reevaluation and potential referral to a specialist for your new/worse back problems. Return for new or worsening symptoms. I sent your prescriptions electronically to [facility] in [place]. I am prescribing a short course of narcotic pain medication for you. These are potentially dangerous and addictive medications that should be used carefully. These medications may constipate you. Take an [id number] stool softener (docusate) twice daily with plenty of water while taking these medications. If you go 24 hours without a bowel movement, take [id number] miralax, per package instructions. Do not drink or drive while taking these medications. If you received narcotic or sedating medications while in the emergency department, do not drive for 24 hours. Store this medication in a safe, secure place and out of reach of children. It is a violation of federal law to give or sell this medication to another person or to use in a manner other than prescribed. The ED will not refill narcotic prescriptions, including prescriptions lost or stolen. To dispose of unwanted medications: 1. [facility] at [address] in [place] has a medication drop box. They accept prescription medications (in pill form) Saturday through Saturday 9:00 a.m. to 5:00 p.m. 2. The [facility] accepts prescription medications (in pill form only) for disposal year round. Call for more information. 3. Contact the [facility] for the next [facility] sponsored prescription drug collection event. , [phone], or [phone]; Note that many narcotic pain relievers also contain Tylenol/acetaminophen. Please ensure that your total dose of acetaminophen from all sources does not exceed 3 g (3000 mg) per day.
== END 2022-07-21 17:55 | disposition home or self-care (01) ==
LOC: ED 17:15
DX: M54.50 Low back pain, unspecified (principal)
CPT/HCPCS: 96372; 99283; J1170; Q0162

== ENCOUNTER 2022-07-22 20:14 | Outpatient (CLI) | payer OTHER | END 2022-07-22 20:15 | disposition home or self-care (01) | LOC: SC 20:14 | PROVIDERS: ATTEND Nurse Practitioner Family | DX: R06.83 Snoring (principal); G47.8 Other sleep disorders; R06.81 Apnea, not elsewhere classified; I10 Essential (primary) hypertension; F32.A Depression, unspecified | CPT/HCPCS: 95810 ==

== ENCOUNTER 2022-08-16 11:19 | Outpatient (CLI) | payer OTHER ==
[2022-08-16 11:51] VITALS: BP 142/90
--- NOTE | 2022-08-16 11:51 | SLEEP CARE CONSULTATION ---
Information from patient questionnaire entered by Danielle Tidwell. I have reviewed and concur with the information entered by Danielle Tidwell. This document represents the service I personally performed and the decisions made by , Idalia Schwartz ARNP. History of Present Illness Service Date and Time: 08/16/2022 111 Initial [place] Sleepiness Scale score: 5 (07/03/22) Additional HPI information: MARIE NICOLE returns for follow up and results of the recently performed polysomnography. The patient was informed of the following findings: No significant sleep disordered breathing with an average AHI of 2.9 and sindy oxygen saturation of 90%. Patient did have an elevated supine AHI of 10.9. I explained the pathophysiology behind obstructive sleep apnea. Patient does not have sleep apnea and was advised how weight gain could increase the risk of developing sleep apnea in the future. I strongly encouraged the patient to lose weight. Patient does not have significant sleep disordered breathing but has elevated AHI in supine position so advised positional therapy. Methods to achieve positional management therapy were discussed. Patient has moderate snoring. Snoring can be reduced by weight loss. Weight loss is best achieved with diet consult. Patient instructed to contact PCP for referral. Snoring can also be treated with an oral appliance from a dentist. Advised to check insurance coverage. In addition, an ENT evaluation can be do to see if other treatment is indicated. Patient was cautioned about risks of drowsy driving until sleepiness symptoms resolve. Sleep Study - Results Type of Sleep Study: Polysomnography (completed 07-22-22) Prior sleep studies: No Polysomnography/Home Sleep Study results: IMPRESSION: The quality of the study is good. The patient had normal sleep efficiency. The sleep architecture was relatively normal considering the first-night effect. Respiratory monitoring showed no significant sleep disordered breathing (AHI = 2.9) or hypoxia (sindy oxygen saturation of 90%). The few respiratory events occurred almost exclusively during supine sleep (supine AHI = 10.9; non-supine = 0.39). Snore was moderate in intensity. There was no significant periodic leg movement of sleep. Cardiac rhythm was normal sinus rhythm without significant arrhythmia. No abnormal behavior (parasomnia) observed during the night. Allergies and Home Medications Drug allergies reviewed: Yes (NKDA) Home medication list reviewed: Yes (no changes) Review of Systems Review of systems same as previous: No (Ablation done on both legs) Physical Exam Vital signs obtained and entered by: DANIELLE Chaidez MA Blood Pressure: 142/90 (LEFT ARM PT AWARE OF HIGH BP) Cuff size: regular Heart Rate: 73 O2 Saturation: 98 Height: 6 ft 2 in Weight: 272 lb 9.6 oz Body Mass Index: 34.9 BMI Classification: Obese Impression and Plan Snoring but no significant sleep disordered breathing. Patient did have an elevated AHI when sleeping supine. He was advised to avoid supine sleep. He voiced understanding. Patient advised that often weight loss will reduce snoring as well as apnea risk. An oral appliance can also be used for snoring. This would require a dental consultation. Patient cautioned not to use other online appliances as can cause bite issues. A list of accredited dentists in [facility] and one local dentist who makes oral appliances is available in office. Patient is advised to check if insurance will cover. An ENT consult can also be helpful to determine if any other treatment is an option. * Attempt to lose weight * Avoid alcohol consumption near bedtime * The patient is cautioned about driving until sleepiness is completely resolved. * Return as needed for follow up. Counseling Topics: Sleeping position, Weight loss health impact Visit Type: In Office Time Spent with Patient (minutes): 10 Provider Statement: I spent 100% of the Face to Face Visit with the patient with greater than 50% spent counseling the patient and coordination of care.
== END 2022-08-16 11:20 | disposition home or self-care (01) ==
LOC: SC 11:19
PROVIDERS: ATTEND Nurse Practitioner Family
DX: R06.83 Snoring (principal); E66.9 Obesity, unspecified; Z68.34 Body mass index [BMI] 34.0-34.9, adult
CPT/HCPCS: 99212

== ENCOUNTER 2023-07-11 08:46 | Outpatient (CLI) | payer OTHER ==
[2023-07-11 09:03] LABS: BASOPHILS # (AUTO) 0.1 10^3/uL (0.0-0.1); BASOPHILS % (AUTO) 1.1 %; EOSINOPHILS # (AUTO) 0.1 10^3/uL (0.0-0.7); EOSINOPHILS % (AUTO) 1.9 %; HCT - HEMATOCRIT 40.5 % (42.0-52.0); HGB - HEMOGLOBIN 13.5 g/dL (14.0-18.0); LYMPHOCYTES # (AUTO) 2.2 10^3/uL (1.5-3.5); LYMPHOCYTES % (AUTO) 34.6 %; MEAN CORPUSCULAR HEMOGLOBIN 28.5 pg (27.0-31.0); MEAN CORPUSCULAR HGB CONC 33.3 g/dL (32.0-36.0); MEAN CORPUSCULAR VOLUME 85.4 fL (80.0-94.0); MEAN PLATELET VOLUME 9.1 fL (7.4-11.4); MONOCYTES # (AUTO) 0.6 10^3/uL (0.0-1.0); NEUTROPHILS # (AUTO) 3.3 10^3/uL (1.5-6.6); NEUTROPHILS % (AUTO) 52.1 %; PLT - PLATELET COUNT 279 10^3/uL (130-450); RED BLOOD COUNT 4.74 10^6/uL (4.70-6.10); RED CELL DISTRIBUTION WIDTH 12.8 % (12.0-15.0); WHITE BLOOD COUNT 6.3 x10^3/uL (4.8-10.8)
[2023-07-11 09:16] LABS: ALBUMIN 4.6 g/dL (3.2-5.5); ALBUMIN/GLOBULIN RATIO 1.8 (1.0-2.2); ALKALINE PHOSPHATASE 87 IU/L (42-121); ALT ALANINE AMINOTRANSFERASE 13 IU/L (10-60); AST ASPARTATE AMINOTRANSFERASE 15 IU/L (10-42); BILIRUBIN,TOTAL 0.7 mg/dL (0.2-1.0); BUN - BLOOD UREA NITROGEN 28 mg/dL (6-20); CALCIUM 9.3 mg/dL (8.5-10.3); CARBON DIOXIDE - CO2 25 mmol/L (21-32); CHLORIDE 106 mmol/L (101-111); CHOL/HDL RATIO 5.5 (<5.0); CHOLESTEROL 186 mg/dL; CREATININE 1.2 mg/dL (0.6-1.3); GFR - MDRD 63 (>89); GLUCOSE 116 mg/dL (74-104); HDL CHOLESTEROL 34 mg/dL; LDL CHOLESTEROL,CALCULATED 123 mg/dL; LDL/HDL RATIO 3.6 (<3.6); POTASSIUM 3.9 mmol/L (3.5-4.5); SODIUM 137 mmol/L (135-145); TOTAL PROTEIN 7.2 g/dL (6.4-8.9); TRIGLYCERIDES 144 mg/dL (48-352); VLDL CHOLESTEROL 29 mg/dL
[2023-07-11 10:25] LABS: PSA TOTAL 0.269 ng/mL (0.000-2.000)
[2023-07-11 11:31] LABS: ESTIMATED AVERAGE GLUCOSE 103 mg/dL (70-100); HEMOGLOBIN A1c% 5.2 % (4.27-6.07)
== END 2023-07-11 08:47 | disposition home or self-care (01) ==
LOC: LAB 08:46
PROVIDERS: ATTEND Physician Assistant
DX: Z13.9 Encounter for screening, unspecified (principal); R39.12 Poor urinary stream
CPT/HCPCS: 36415; 80053; 80061; 83036; 83721; 84153; 84443; 85025

== ENCOUNTER 2023-11-19 11:06 | Outpatient (CLI) | payer OTHER ==
[2023-11-19 11:34] LABS: CREATININE 1.3 mg/dL (0.6-1.3); POTASSIUM 3.9 mmol/L (3.5-4.5)
== END 2023-11-19 11:07 | disposition home or self-care (01) ==
LOC: LAB 11:06
PROVIDERS: ATTEND Physician Assistant
DX: I10 Essential (primary) hypertension (principal); Z79.899 Other long term (current) drug therapy
CPT/HCPCS: 36415; 80048

== ENCOUNTER 2023-11-27 18:57 | Emergency (ER) | payer OTHER ==
[2023-11-27 19:23] VITALS: BP 132/67; O2SAT 100
[2023-11-27] MEDS ORDERED: KETOROLAC 60 MG/2 ML VIAL IM STA (19:34)
[2023-11-27] MEDS ORDERED: CYCLOBENZAPRINE 10 MG TABLET PO STA (19:34)
--- NOTE | 2023-11-27 19:51 | ED Physician Documentation ---
PD HPI BACK PAIN - Stated complaint Stated Complaint: SOA,BACK PX - Chief complaint Chief Complaint: Back Pain - History obtained from History obtained from: Patient - History of Present Illness Timing - onset: Chronic Pain level max: 8 Pain level now: 8 Location: Lower, Right, Left Quality: Pain, Spasm, Similar to prior episodes Associated symptoms: No: Fever, Weakness, Numbness, Incontinent of urine, Unable to urinate, Hematuria, Incontinent of stool Contributing factors: No: Lifting, Twisting, Trauma, Anticoagulated, Cancer, IVDA, Out of meds Similar symptoms before: Has not had sx before - Additional information Additional information: Patient is a 53-year-old male with a longstanding history of chronic back pain. He has been through multiple back surgeries as well as injections in his back. He is awaiting an appointment in February at the [facility] to see if "trigger point injections" will help with his back pain. Tonight he has increasing spasm. He takes oxycodone 2-3 times a week as needed for pain. He states usually Flexeril and Toradol help his back pain. No fevers. No chills. No IV drug use. Review of Systems Constitutional: denies: Fever, Chills GI: denies: Nausea, Vomiting, Diarrhea Skin: denies: Rash Musculoskeletal: denies: Neck pain Neurologic: denies: Focal weakness, Numbness, Headache PD PAST MEDICAL HISTORY - Past Medical History Past Medical History: Yes Cardiovascular: None Respiratory: None Neuro: None Endocrine/Autoimmune: None GI: None : None HEENT: None Psych: Depression Musculoskeletal: Chronic back pain Derm: None - Past Surgical History Past Surgical History: Yes General: Colonoscopy Ortho: Arthroscopic surgery, Spine surgery - Present Medications Home Medications: Ambulatory Orders Medication Instructions Recorded Confirmed buPROPion [Wellbutrin Xl] 150 mg ORAL DAILY 01/08/22 07/21/22 Losartan [Cozaar] 50 mg PO DAILY 07/21/22 07/21/22 Oxycodone HCl/Acetaminophen 1 - 2 each PO Q6H PRN #20 tablet 07/21/22 [Percocet 5-325 mg Tablet] Lidocaine Patch 5% [Lidoderm Patch] 1 patch TOP DAILY PRN #10 patch 06/15/23 Cyclobenzaprine [Flexeril] 10 mg PO TID PRN #20 tablet 11/27/23 Duloxetine HCl [Cymbalta] 60 mg PO DAILY 11/27/23 Ketorolac [Toradol] 10 mg PO Q6H PRN #30 tablet 11/27/23 Meloxicam, Submicronized 15 mg PO DAILY 11/27/23 [Meloxicam] - Allergies Allergies/Adverse Reactions: Allergies Allergy/AdvReac Type Severity Reaction Status Date / Time No Known Drug Allergies Allergy Verified 11/27/23 19:21 - Social History Does the pt smoke?: No Smoking Status: Never smoker Does the pt drink ETOH?: No Does the pt have substance abuse?: No - Immunizations Immunizations are current?: Yes Immunizations: TDAP current <10years - POLST Patient has POLST: No PD ED PE NORMAL - Vitals Vital signs reviewed: Yes - General General: Alert and oriented X 3, No acute distress - HEENT HEENT: Moist mucous membranes - Neck Neck: Supple, no meningeal sign - Cardiac Cardiac: RRR, Strong equal pulses - Respiratory Respiratory: No respiratory distress, Clear bilaterally - Abdomen Abdomen: Soft, Non tender, Non distended - Back Back: No spinal TTP (No midline tenderness palpation or percussion. No step-off or deformity. Paraspinal spasm present bilateral lower lumbar) - Derm Derm: Warm and dry - Extremities Extremities: No deformity, No edema - Neuro Neuro: Alert and oriented X 3, No motor deficit, No sensory deficit, Other (Normal bilateral lower extremity patellar and ankle jerk reflexes. Normal great toe extension bilaterally. no saddle anesthesia) - Psych Psych: Normal mood, Normal affect Results - Vitals Vitals: Vital Signs - 24 hr 11/27/23 19:16 Temperature 36.5 C Heart Rate 84 Respiratory 18 Rate Blood Pressure 132/67 H O2 Saturation 100 Oxygen O2 Source Room air PD Medical Decision Making - ED course Complexity details: reviewed old records, re-evaluated patient, considered differential (No cauda equina, no spinal epidural abscess, no fracture, no aortic dissection or evidence of aneursym rupture), d/w patient ED course: Patient with acute on chronic back pain. He states that this happens about every 6 months to 1 year. Usually improves with Toradol and Flexeril. This was given here. Has oxycodone at home. No evidence of cauda equina, epidural abscess. No indication for emergent imaging. No focal neurological deficits. Patient counseled regarding signs and symptoms for which I believe and urgent re-evaluation would be necessary. Patient with good understanding of and agreement to plan and is comfortable going home at this time This document was made in part using voice recognition software. While efforts are made to proofread this document, sound alike and grammatical errors may occur. Departure - Departure Disposition: Home, Self Care Clinical Impression: Acute exacerbation of chronic low back pain Condition: Good Instructions: ED Neck Back Pain General Follow-Up: Alma Delia Prado PA [Primary Care Provider] - Within 1 week Prescriptions: Cyclobenzaprine [Flexeril] 10 mg PO TID PRN #20 tablet PRN Reason: Spasms Ketorolac [Toradol] 10 mg PO Q6H PRN #30 tablet PRN Reason: back pain Comments: Your prescriptions were sent to [facility] in [place]. Hopefully the Flexeril will help with your spasms. Do not take the oral Toradol while you are taking meloxicam. We can try you on the ketorolac/Toradol instead of meloxicam to see if this works better for you. Please follow-up with your doctor for further care. Please return if you worsen. Discharge Date/Time: 11/27/23 20:00
== END 2023-11-27 20:00 | disposition home or self-care (01) ==
LOC: ED 18:57
DX: G89.29 Other chronic pain (principal); M54.50 Low back pain, unspecified
CPT/HCPCS: 96372; 99283; 99284; A9270

== ENCOUNTER 2024-02-29 12:49 | Emergency (ER) | payer OTHER ==
--- NOTE | 2024-02-29 13:06 | ED Physician Documentation ---
History of Present Illness - Stated complaint Stated Complaint: - Chief complaint Chief Complaint: General - History obtained from History obtained from: Patient - Additonal information Additional information: 53-year-old gentleman with chronic back issues presents for the evaluation of urinary incontinence. Over the last 2 weeks he has noticed episodes where he does not necessarily feel like he needs to urinate but then he wets himself. It has been progressive. He denies saddle anesthesia or an increase in his low back pain. There is no bowel control issue. It is worse if he ambulates. Sometimes he has urgency before this, sometimes not. He has never had it when just sitting or supine. He does not have dysuria but states his urine smells "toxic." PD PAST MEDICAL HISTORY - Past Medical History Past Medical History: Yes Cardiovascular: None Respiratory: None Neuro: None Endocrine/Autoimmune: None GI: None : None HEENT: None Psych: Depression Musculoskeletal: Chronic back pain Derm: None - Past Surgical History Past Surgical History: Yes General: Colonoscopy Ortho: Arthroscopic surgery, Spine surgery - Present Medications Home Medications: Ambulatory Orders Medication Instructions Recorded Confirmed buPROPion [Wellbutrin Xl] 150 mg ORAL DAILY 01/08/22 07/21/22 Losartan [Cozaar] 50 mg PO DAILY 07/21/22 07/21/22 Oxycodone HCl/Acetaminophen 1 - 2 each PO Q6H PRN #20 tablet 07/21/22 [Percocet 5-325 mg Tablet] Lidocaine Patch 5% [Lidoderm Patch] 1 patch TOP DAILY PRN #10 patch 06/15/23 Cyclobenzaprine [Flexeril] 10 mg PO TID PRN #20 tablet 11/27/23 Duloxetine HCl [Cymbalta] 60 mg PO DAILY 11/27/23 Ketorolac [Toradol] 10 mg PO Q6H PRN #30 tablet 11/27/23 Meloxicam, Submicronized 15 mg PO DAILY 11/27/23 [Meloxicam] oxyBUTYnin chloride [Oxybutynin 1 - 2 tab PO DAILY #90 tab 02/29/24 Chloride ER] - Allergies Allergies/Adverse Reactions: Allergies Allergy/AdvReac Type Severity Reaction Status Date / Time No Known Drug Allergies Allergy Verified 02/29/24 12:59 - Social History Does the pt smoke?: No Smoking Status: Never smoker Does the pt drink ETOH?: No Does the pt have substance abuse?: No - Immunizations Immunizations are current?: Yes Immunizations: TDAP current <10years - POLST Patient has POLST: No PD ED PE NORMAL - Vitals Vital signs reviewed: Yes - General General: Alert and oriented X 3, No acute distress - Abdomen Abdomen: Normal bowel sounds, Soft, Non tender - Rectal Rectal: Other (Normal rectal sphincter tone, no fecal impaction, large smooth prostate.) - Neuro Neuro: Alert and oriented X 3, No motor deficit, No sensory deficit, Normal speech Results - Vitals Vitals: Vital Signs - 24 hr 02/29/24 02/29/24 02/29/24 12:52 12:59 14:13 Temperature 36.6 C 36.6 C Heart Rate 85 85 78 Respiratory 16 16 15 Rate Blood Pressure 144/84 H 144/84 H 151/90 H O2 Saturation 96 96 98 Oxygen O2 Source Room air - Labs Labs: Laboratory Tests 02/29/24 02/29/24 02/29/24 13:15 13:15 13:15 WBC 7.9 RBC 4.68 L Hgb 13.3 L Hct 40.6 L MCV 86.8 MCH 28.4 MCHC 32.8 RDW 12.8 Plt Count 256 MPV 8.7 Neut # (Auto) 5.0 Lymph # (Auto) 1.9 Meigs # (Auto) 0.7 Eos # (Auto) 0.1 Baso # (Auto) 0.1 Absolute Nucleated RBC 0.00 Nucleated RBC % 0.0 Sodium 137 Potassium 4.2 Chloride 104 Carbon Dioxide 27 Anion Gap 6.0 BUN 30 H Creatinine 1.0 Estimated GFR (MDRD) 78 L Glucose 102 Calcium 10.1 Total Bilirubin 0.8 AST 21 ALT 34 Alkaline Phosphatase 87 Total Protein 7.6 Albumin 4.8 Globulin 2.8 Albumin/Globulin Ratio 1.7 Total PSA 0.320 Urine Color YELLOW Urine Clarity CLEAR Urine pH 6.0 Ur Specific [place] <=1.005 Urine Protein NEGATIVE Urine Glucose (UA) NEGATIVE Urine Ketones NEGATIVE Urine Occult Blood NEGATIVE Urine Nitrite NEGATIVE Urine Bilirubin NEGATIVE Urine Urobilinogen 0.2 (NORMAL) Ur Leukocyte Esterase NEGATIVE Ur Microscopic Review NOT INDICATED Urine Culture Comments NOT INDICATED PD Medical Decision Making - ED course ED course: Postvoid residual was only 51 mL, this suggests against overflow incontinence which was my first and most worrisome concern since he has an extensive history of spinal cord issues and spinal surgeries. That said he does not have other symptoms suggestive of an acute cauda equina such as saddle anesthesia, bowel incontinence, or increased back pain. While we are talking he suddenly gets up and says I have to go to the bathroom with urgency. This would suggest some element of urge incontinence and I think oxybutynin would be helpful. Departure - Departure Disposition: 01 Home, Self Care Clinical Impression: Urinary incontinence Qualifiers: Urinary Incontinence type: urge incontinence Qualified Code(s): N39.41 - Urge incontinence Condition: Good Record reviewed to determine appropriate education?: Yes Instructions: ED Bladder Overactive Male Follow-Up: Francis Wise MD [Provider Admit Priv/Credential] - Prescriptions: oxyBUTYnin chloride [Oxybutynin Chloride ER] 1 - 2 tab PO DAILY #90 tab Comments: You were seen today for new urinary incontinence. My biggest worry given your history was that it could be a spinal cord issue, that said without other symptoms to suggest that and a negligible postvoid residual (very little urine left in your bladder after urinating), this is very unlikely. You did have a large prostate on exam and your lab work is normal. You do have a PSA pending on discharge. Will be helpful for when you follow-up, and you can also look it up in the hospital patient portal at the hospital website if you are curious. If you develop more severe back pain, or lose control of bowels, or get numb around her private parts, we would like to see you again urgently. Alternatively if any of those were to develop it would be reasonable to go to a center with a spine surgeon such as [place] or [facility]. In the meantime it would be good for you to follow-up with our urologist, this number is on this form, and I am starting you on a medication to help with bladder spasms. Started at a dose of 1 tablet/day, if ineffective you can double it to 2 tablets/day. Forms: PCP List Discharge Date/Time: 02/29/24 14:14
[2024-02-29 13:23] LABS: BASOPHILS # (AUTO) 0.1 10^3/uL (0.0-0.1); BASOPHILS % (AUTO) 0.6 %; EOSINOPHILS # (AUTO) 0.1 10^3/uL (0.0-0.7); EOSINOPHILS % (AUTO) 1.6 %; HCT - HEMATOCRIT 40.6 % (42.0-52.0); HGB - HEMOGLOBIN 13.3 g/dL (14.0-18.0); LYMPHOCYTES # (AUTO) 1.9 10^3/uL (1.5-3.5); LYMPHOCYTES % (AUTO) 24.5 %; MEAN CORPUSCULAR HEMOGLOBIN 28.4 pg (27.0-31.0); MEAN CORPUSCULAR HGB CONC 32.8 g/dL (32.0-36.0); MEAN CORPUSCULAR VOLUME 86.8 fL (80.0-94.0); MEAN PLATELET VOLUME 8.7 fL (7.4-11.4); MONOCYTES # (AUTO) 0.7 10^3/uL (0.0-1.0); MONOCYTES % (AUTO) 8.7 %; PLT - PLATELET COUNT 256 10^3/uL (130-450); RED BLOOD COUNT 4.68 10^6/uL (4.70-6.10); RED CELL DISTRIBUTION WIDTH 12.8 % (12.0-15.0); WHITE BLOOD COUNT 7.9 x10^3/uL (4.8-10.8)
[2024-02-29 13:24] LABS: BILIRUBIN,URINE NEGATIVE (NEGATIVE); GLUCOSE, URINE (UA) NEGATIVE (NEGATIVE); KETONES,URINE (UA) NEGATIVE (NEGATIVE); LEUKOCYTE ESTERASE, URINE NEGATIVE (NEGATIVE); NITRITE,URINE NEGATIVE (NEGATIVE); OCCULT BLOOD,URINE NEGATIVE (NEGATIVE); PROTEIN,URINE NEGATIVE (NEGATIVE); UROBILINOGEN,URINE 0.2 (NORMAL) E.U./dL (NORMAL)
[2024-02-29 13:26] LABS: CLARITY,URINE CLEAR (CLEAR)
[2024-02-29 13:38] LABS: ALBUMIN 4.8 g/dL (3.2-5.5); ALBUMIN/GLOBULIN RATIO 1.7 (1.0-2.2); BILIRUBIN,TOTAL 0.8 mg/dL (0.2-1.0); CALCIUM 10.1 mg/dL (8.5-10.3); POTASSIUM 4.2 mmol/L (3.5-4.5); TOTAL PROTEIN 7.6 g/dL (6.4-8.9)
[2024-02-29 14:16] VITALS: BP 151/90; O2SAT 98
== END 2024-02-29 14:14 | disposition home or self-care (01) ==
LOC: ED 12:49
DX: N39.41 Urge incontinence (principal); N40.1 Benign prostatic hyperplasia with lower urinary tract symptoms
CPT/HCPCS: 36415; 51798; 80053; 81001; 81003; 84153; 85025; 87086; 99283; 99284

== ENCOUNTER 2024-03-13 08:47 | Outpatient (CLI) | payer OTHER ==
[2024-03-13 09:30] LABS: THYROID STIMULATING HORMONE 2.22 uIU/mL (0.34-5.60)
== END 2024-03-13 08:48 | disposition home or self-care (01) ==
LOC: LAB 08:47
PROVIDERS: ATTEND Physician Assistant
DX: R63.5 Abnormal weight gain (principal)
CPT/HCPCS: 36415; 82533; 84403; 84443

== ENCOUNTER 2024-04-13 08:50 | Outpatient (CLI) | payer OTHER ==
[2024-04-13 09:09] LABS: BASOPHILS # (AUTO) 0.1 10^3/uL (0.0-0.1); BASOPHILS % (AUTO) 0.9 %; EOSINOPHILS # (AUTO) 0.1 10^3/uL (0.0-0.7); EOSINOPHILS % (AUTO) 1.9 %; HCT - HEMATOCRIT 40.7 % (42.0-52.0); HGB - HEMOGLOBIN 13.5 g/dL (14.0-18.0); LYMPHOCYTES # (AUTO) 2.1 10^3/uL (1.5-3.5); LYMPHOCYTES % (AUTO) 30.9 %; MEAN CORPUSCULAR HEMOGLOBIN 28.8 pg (27.0-31.0); MEAN CORPUSCULAR HGB CONC 33.2 g/dL (32.0-36.0); MONOCYTES # (AUTO) 0.6 10^3/uL (0.0-1.0); MONOCYTES % (AUTO) 8.3 %; NEUTROPHILS % (AUTO) 57.6 %; PLT - PLATELET COUNT 274 10^3/uL (130-450); RED BLOOD COUNT 4.68 10^6/uL (4.70-6.10); RED CELL DISTRIBUTION WIDTH 12.6 % (12.0-15.0); WHITE BLOOD COUNT 6.9 x10^3/uL (4.8-10.8)
[2024-04-13 09:54] LABS: PROLACTIN 9.63 ng/mL
== END 2024-04-13 08:51 | disposition home or self-care (01) ==
LOC: LAB 08:50
PROVIDERS: ATTEND Urology
DX: E29.1 Testicular hypofunction (principal)
CPT/HCPCS: 36415; 82670; 83002; 84146; 84153; 84403; 85025

== ENCOUNTER 2024-07-22 08:47 | Day surgery (SDC) | payer OTHER ==
[2024-07-22] MEDS: LACTATED RINGERS 1,000 ML IV ONE ×2 (08:52→13:10)
--- NOTE | 2024-07-22 10:26 | ANESTHESIA ---
Pre-Anesthesia VS, & Labs - Diagnosis screening - Procedure colonoscopy Vital Signs: Temp Pulse Resp BP Pulse Ox O2 Flow Rate 36.4 C L 83 12 140/98 H 95 0 07/22/24 09:05 07/22/24 09:05 07/22/24 09:05 07/22/24 09:05 07/22/24 09:05 07/22/24 09:05 Height: 6 ft 2 in Weight (kg): 117 kg Body Mass Index: 33.1 BMI Classification: Obese - NPO Other (prep last at 445) Home Medications and Allergies Home Medications: Ambulatory Orders Baclofen 5 mg PO DAILY 07/21/24 Celecoxib [CeleBREX] 100 mg PO BID 07/21/24 hydroCHLOROthiazide [Hydrodiuril] 25 mg PO DAILY 07/21/24 buPROPion [Wellbutrin Xl] 150 mg ORAL DAILY 01/08/22 Losartan [Cozaar] 50 mg PO DAILY 07/21/22 Baclofen 5 mg PO DAILY 07/21/24 Celecoxib [CeleBREX] 100 mg PO BID 07/21/24 hydroCHLOROthiazide [Hydrodiuril] 25 mg PO DAILY 07/21/24 Allergies/Adverse Reactions: Allergies Allergy/AdvReac Type Severity Reaction Status Date / Time No Known Drug Allergies Allergy Verified 02/29/24 12:59 Anes History & Medical History - Anesthetic History Anesthesia Complications: reports: No previous complications - Medical History Cardiovascular: reports: Hypertension Pulmonary: reports: None Gastrointestinal: reports: None Urinary: reports: None Neuro: reports: None Musculoskeletal: reports: Chronic back pain Endocrine/Autoimmune: reports: None Blood Disorders: reports: None Skin: reports: None Smoking Status: Never smoker - Surgical History General: reports: Appendectomy, Colonoscopy Orthopedic: reports: Arthroscopic surgery, Spine surgery Exam General: Alert, Oriented x3 Dental: WNL Mouth Opening: Greater than 4 Fingerbreadths Neck Mobility: Normal Mallampati classification: II Thyromental Distance: greater than 6 cm Respiratory: Lungs clear Cardiovascular: Regular rate Plan Anesthesia Type: Total IV Consent for Procedure(s) Verified and Reviewed: Yes Code Status: Attempt Resuscitation ASA classification: 2-Mild systemic disease Is this case an emergency?: No
[2024-07-22] MEDS ORDERED: LIDOCAINE-MPF 2% 5 ML VIAL ONE (12:02)
[2024-07-22] MEDS ORDERED: PROPOFOL 500 MG/50 ML 500 MG/50 ML VIAL ONE (12:02)
--- NOTE | 2024-07-22 12:43 | HISTORY & PHYSICAL EXAMINATION ---
HPI - History of Present Illness HPI Comment/Other: 54yoM admitted to same day surgery as "direct scope" for screening colonoscopy. This is his third colonoscopy, he has had polyps in the past and has gotten a scope every 3 years. His mother had colon cancer at age 23. He denies abdominal pain, n/v, d/c, change in stool, blood in stool, or unintentional weight loss. PMH/PSH - Past Medical History Cardiovascular: positive: Hypertension Respiratory: positive: None Neuro: positive: None Endocrine/Autoimmune: positive: None GI: positive: None : positive: None HEENT: positive: None Psych: positive: Depression Musculoskeletal: positive: Chronic back pain Derm: positive: None MRSA Hx?: No - Past Surgical History General: positive: Appendectomy, Colonoscopy Ortho: positive: Arthroscopic surgery, Spine surgery (ALIF) Social & Family Hx - Living Situation Living Arrangement: At home - Social History Does the pt smoke?: No Smoking Status: Never smoker Does the pt drink ETOH?: No Does the pt have substance abuse?: No - POLST Patient has POLST: No Meds/Allgy - Home Medications Home Medications: Ambulatory Orders Medication Instructions Recorded Confirmed buPROPion [Wellbutrin Xl] 150 mg ORAL DAILY 01/08/22 07/21/24 Losartan [Cozaar] 50 mg PO DAILY 07/21/22 07/21/24 oxyBUTYnin chloride [Oxybutynin 1 - 2 tab PO DAILY #90 tab 02/29/24 07/21/24 Chloride ER] Baclofen 5 mg PO DAILY 07/21/24 07/21/24 Celecoxib [CeleBREX] 100 mg PO BID 07/21/24 07/21/24 hydroCHLOROthiazide [Hydrodiuril] 25 mg PO DAILY 07/21/24 07/21/24 - Allergies Allergies/Adverse Reactions: Allergies Allergy/AdvReac Type Severity Reaction Status Date / Time No Known Drug Allergies Allergy Verified 02/29/24 12:59 Exam - Vital Signs Reviewed Vital Signs: Yes Vital Signs: Vital Signs x48h Temp Pulse Resp BP Pulse Ox O2 Flow Rate 07/22/24 09:05 36.4 C L 83 12 140/98 H 95 0 - Physical Exam General Appearance: positive: No acute distress, Alert Eyes Bilateral: positive: Normal inspection, PERRL ENT: positive: ENT inspection nml, Pharynx nml, No signs of dehydration Neck: positive: Nml inspection, Thyroid nml, No JVD, Trachea midline Respiratory: positive: Chest non-tender, No respiratory distress, Breath sounds nml Cardiovascular: positive: Regular rate & rhythm, No murmur, No gallop Peripheral Pulses: positive: 2+ Abdomen: positive: Non-tender, No organomegaly, Nml bowel sounds, No distention Back: positive: Nml inspection Skin: positive: Color nml, No rash, Warm, Dry Extremities: positive: Non-tender, Full ROM, Nml appearance Neurologic/Psychiatric: positive: Oriented x3, Mood/affect nml Impression/Plan - Problem List Problem List: 54yoM with history of colon polyps and +Fhx for colon cancer. No alarm symptoms. Proceed with surveillance colonoscopy. Indications and risks, to include but not limited to bowel perforation, were reviewed with the patient who agrees to proceed. Marie Sun DO, FACS General Surgeon, [facility]
[2024-07-22 13:38] VITALS: BP 110/75; O2SAT 97
--- NOTE | 2024-07-22 13:49 | ANESTHESIA POST OP EVALUATION ---
Anesthesia Post Eval - Post Anesthesia Eval Vitals: Last Vital Signs Temp 36.2 C L 07/22/24 13:36 Pulse 63 07/22/24 13:36 Resp 16 07/22/24 13:36 BP 110/75 07/22/24 13:36 Pulse Ox 97 07/22/24 13:36 O2 Flow Rate 0 07/22/24 09:05 CV Function Including HR & BP: Stable Pain Control: Satisfactory Nausea & Vomiting: Negative Mental Status: Baseline Respiratory Status: Airway Patent Hydration Status: Satisfactory Anesthesia Complications: None
== END 2024-07-22 08:48 | disposition home or self-care (01) ==
LOC: SDS 08:47
PROVIDERS: ATTEND Surgery
DX: Z12.11 Encounter for screening for malignant neoplasm of colon (principal); E66.9 Obesity, unspecified; Z68.33 Body mass index [BMI] 33.0-33.9, adult; I10 Essential (primary) hypertension; Z86.010 Personal history of colon polyps; Z80.0 Family history of malignant neoplasm of digestive organs
CPT/HCPCS: 45330; J7120